=== PATIENT | female | born 1950 | race Caucasian/White ===

== ENCOUNTER 2016-05-14 09:30 | Inpatient (IN) | payer MEDICARE, OTHER ==
[2016-05-14] MEDS ORDERED: IPRATROPIUM-ALBUTEROL 3 ML NEB INHALATION STA (09:41)
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
[2016-05-14 11:12] LABS: Basophils # (A) 0.1 k/uL (0-0.2); Basophils % (A) 1 %; CH 31.6; CHCM 35.1; Eosinophils # (A) 0.5 k/uL (0-0.7); Eosinophils % (A) 5 %; HCT 44.7 % (34.0-46.0); HDW 2.69; HGB 14.9 gm/dL (11.4-16.0); Luc # (Auto) 0.17; Luc % (Auto) 2; Lymphocytes # (A) 2.1 k/uL (1.0-4.8); Lymphocytes % (A) 22 %; MCH 30.2 pg (25.0-35.0); MCHC 33.5 g/dL (31.0-37.0); MCV 90.2 fL (80.0-100.0); Mean Platelet Volume 6.6; Monocytes # (A) 0.8 k/uL (0-1.0); Monocytes % (A) 8 %; Neutrophils % (A) 62 %; RBC 4.95 m/uL (3.80-5.40); RDW 13.6 % (11.5-15.5); WBC 9.7 k/uL (3.8-10.6); WBC (Perox) 9.65
[2016-05-14 11:19] LABS: ALT 23 U/L (9-52); AST 25 U/L (14-36); Alcohol <10 mg/dL; Alkaline Phosphatase 60 U/L (38-126); Anion Gap 10 mmol/L; Blood Urea Nitrogen 19 mg/dL (7-17); Calcium 9.6 mg/dL (8.4-10.2); Carbon Dioxide 25 mmol/L (22-30); Chloride 92 mmol/L (98-107); Glucose 99 mg/dL (74-99); Magnesium 1.8 mg/dL (1.6-2.3); Non-African American GFR(MDRD) >60 (>60 ml/min/1.73 sqM); Potassium 4.2 mmol/L (3.5-5.1); Sodium 127 mmol/L (137-145); Total Bilirubin 0.5 mg/dL (0.2-1.3); Total Protein 6.3 g/dL (6.3-8.2)
--- NOTE | 2016-05-14 11:20 | XR ---
EXAMINATION TYPE: XR chest 2V DATE OF EXAM: 05/14/2016 11:15 AM COMPARISON: Prior chest x-ray April 15, 2016 and older exam November 20, 2015. HISTORY: Cough. TECHNIQUE: Frontal and lateral views of the chest are obtained. FINDINGS: There is persistent bibasilar opacity favoring atelectasis and/or scarring. Acute infiltra te is difficult to exclude though no significant change from prior studies is seen. No large pleural effusion or pneumothorax is present bilaterally. The cardiac silhouette size is within normal limits with atherosclerotic thoracic aorta. The osseous structures are are demineralized. IMPRESSION: Persistent basilar opacities favoring atelectasis and/or scarring, acute infiltrate at t his level difficult to entirely exclude in the appropriate clinical setting.
[2016-05-14] MEDS ORDERED: SODIUM CHLORIDE 0.9% 1,000 ML IV STA (11:36)
[2016-05-14] MEDS ORDERED: NON-FORMULARY DRUG (Menthol [Biofreeze] 1 APPLIC) TOPICAL PRN (12:59)
[2016-05-14] MEDS: AZITHROMYCIN 250 MG TAB PO SCH (13:18)
[2016-05-14] MEDS: SODIUM CHLORIDE 0.9% 1,000 ML IV SCH (13:19)
[2016-05-14] MEDS: IPRATROPIUM-ALBUTEROL 3 ML NEB INHALATION SCH ×3 (14:58→20:39)
[2016-05-14 15:14] LABS: Appearance,Urine Clear (Clear); Bilirubin,Urine Negative (Negative); Glucose,Urine (UA) Negative (Negative); Ketones,Urine Negative (Negative); Leukocyte Esterase,Urine Negative (Negative); Nitrite,Urine Negative (Negative); PH, Urine 6.5 (5.0-8.0); Protein,Urine Negative (Negative); Specific Gravity,Urine 1.003 (1.001-1.035); UA Billing (MACRO vs. MICRO) CHEM; Urobilinogen,Urine <2.0 mg/dL (<2.0)
[2016-05-14 17:18] LABS: Glucose,Whole Blood 92 mg/dL (75-99)
[2016-05-14] MEDS: methylPREDNISolone SOD SUCCI 125 MG/2 ML VIAL IV SCH (17:26)
[2016-05-14 17:36] LABS: Glucose,Whole Blood 92 mg/dL (75-99)
[2016-05-14] MEDS ORDERED: IPRATROPIUM-ALBUTEROL 3 ML NEB INHALATION PRN (20:40)
[2016-05-14 21:00] LABS: Glucose,Whole Blood 148 mg/dL (75-99)
[2016-05-14] MEDS ORDERED: NON-FORMULARY DRUG (Cranberry Conc/C/Bacill Coag [Cranberry Tablet] 1 TAB) PO SCH (21:00)
[2016-05-14] MEDS: cloZAPine 25 MG TAB PO SCH (22:00)
[2016-05-14] MEDS: DIVALPROEX ER 500 MG TAB.ER.24H PO SCH (22:00)
[2016-05-14] MEDS: cloZAPine 100 MG TAB PO SCH (22:00)
[2016-05-15] MEDS: SODIUM CHLORIDE 0.9% 1,000 ML IV SCH ×3 (00:16→13:57)
[2016-05-15] MEDS: methylPREDNISolone SOD SUCCI 125 MG/2 ML VIAL IV SCH ×2 (00:16→06:02)
[2016-05-15] MEDS: IPRATROPIUM-ALBUTEROL 3 ML NEB INHALATION SCH ×4 (07:14→20:55)
[2016-05-15 07:40] LABS: Glucose,Whole Blood 148 mg/dL (75-99)
[2016-05-15] MEDS: ASPIRIN 81 MG CHEW PO SCH (07:59)
[2016-05-15] MEDS: CALCIUM CARB-VIT D 500MG-200UN 1 EACH TAB PO SCH (07:59)
[2016-05-15] MEDS: POLYETHYLENE GLYCOL 3350 17 GM POWD.PACK PO SCH (08:00)
[2016-05-15] MEDS: FAMOTIDINE 20 MG TAB PO SCH (08:00)
[2016-05-15] MEDS: cloZAPine 100 MG TAB PO SCH ×2 (08:00→21:30)
[2016-05-15] MEDS ORDERED: TIOTROPIUM 18 MCG/PUFF INHALER INHALATION SCH (08:00)
[2016-05-15 10:34] LABS: Anion Gap 13 mmol/L; Blood Urea Nitrogen 25 mg/dL (7-17); Calcium 8.9 mg/dL (8.4-10.2); Carbon Dioxide 17 mmol/L (22-30); Chloride 106 mmol/L (98-107); Glucose 330 mg/dL (74-99); Non-African American GFR(MDRD) >60 (>60 ml/min/1.73 sqM); Sodium 136 mmol/L (137-145)
[2016-05-15 10:35] LABS: Potassium 5.1 mmol/L (3.5-5.1)
[2016-05-15 11:03] VITALS: BMI 22.0
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
[2016-05-15 12:19] LABS: Glucose,Whole Blood 300 mg/dL (75-99)
[2016-05-15] MEDS: ENOXAPARIN 40 MG/0.4 ML SYRINGE SQ SCH (12:33)
[2016-05-15] MEDS: DIVALPROEX ER 250 MG TAB.ER.24H PO SCH (12:34)
[2016-05-15] MEDS: INSULIN LISPRO (humaLOG) 300 UNIT/3 ML VIAL SQ SCH ×3 (12:41→21:08)
[2016-05-15 13:25] LABS: Hemoglobin A1C 4.9 % (4.2-6.1)
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
[2016-05-15] MEDS: methylPREDNISolone SOD SUCCI 40 MG/ML 1 ML VIAL IV SCH ×2 (16:03→23:29)
[2016-05-15] MEDS: traMADol 50 MG TAB PO PRN (17:22)
[2016-05-15 17:29] LABS: Glucose,Whole Blood 144 mg/dL (75-99)
[2016-05-15 20:45] LABS: Glucose,Whole Blood 142 mg/dL (75-99)
[2016-05-15] MEDS: DIVALPROEX ER 500 MG TAB.ER.24H PO SCH (21:29)
[2016-05-15] MEDS: cloZAPine 25 MG TAB PO SCH (21:30)
[2016-05-16] MEDS: SODIUM CHLORIDE 0.9% 1,000 ML IV SCH ×2 (04:39→15:08)
[2016-05-16 06:59] LABS: Norclozapine 151 ng/mL (200-700)
[2016-05-16 07:12] LABS: Glucose,Whole Blood 163 mg/dL (75-99)
[2016-05-16] MEDS: CALCIUM CARB-VIT D 500MG-200UN 1 EACH TAB PO SCH (08:05)
[2016-05-16] MEDS: POLYETHYLENE GLYCOL 3350 17 GM POWD.PACK PO SCH (08:05)
[2016-05-16] MEDS: ASPIRIN 81 MG CHEW PO SCH (08:05)
[2016-05-16] MEDS: cloZAPine 100 MG TAB PO SCH ×2 (08:05→21:05)
[2016-05-16] MEDS: methylPREDNISolone SOD SUCCI 40 MG/ML 1 ML VIAL IV SCH ×2 (08:05→15:08)
[2016-05-16] MEDS: FAMOTIDINE 20 MG TAB PO SCH (08:05)
[2016-05-16] MEDS: ENOXAPARIN 40 MG/0.4 ML SYRINGE SQ SCH (08:06)
[2016-05-16] MEDS: INSULIN LISPRO (humaLOG) 300 UNIT/3 ML VIAL SQ SCH ×4 (08:06→21:25)
[2016-05-16] MEDS: IPRATROPIUM-ALBUTEROL 3 ML NEB INHALATION SCH ×4 (09:16→19:29)
[2016-05-16] MEDS: AZITHROMYCIN 250 MG TAB PO SCH (11:16)
[2016-05-16] MEDS: DIVALPROEX ER 250 MG TAB.ER.24H PO SCH (11:16)
[2016-05-16 11:27] LABS: CH 30.9; CHCM 33.3; HDW 2.66; HGB 13.7 gm/dL (11.4-16.0); MCH 31.1 pg (25.0-35.0); MCHC 33.3 g/dL (31.0-37.0); MCV 93.3 fL (80.0-100.0); Mean Platelet Volume 7.3; RBC 4.39 m/uL (3.80-5.40); RDW 13.7 % (11.5-15.5)
[2016-05-16 11:28] LABS: Glucose,Whole Blood 123 mg/dL (75-99)
[2016-05-16 11:39] LABS: Anion Gap 8 mmol/L; Blood Urea Nitrogen 23 mg/dL (7-17); Calcium 9.1 mg/dL (8.4-10.2); Carbon Dioxide 25 mmol/L (22-30); Chloride 106 mmol/L (98-107); Glucose 122 mg/dL (74-99); Non-African American GFR(MDRD) >60 (>60 ml/min/1.73 sqM); Potassium 4.6 mmol/L (3.5-5.1); Sodium 139 mmol/L (137-145)
[2016-05-16 17:14] LABS: Glucose,Whole Blood 292 mg/dL (75-99)
[2016-05-16] MEDS: PIPERACILLIN-TAZOBACTAM 3.375 GM in DEXTROSE/WATER 1 50ML.BAG IVPB SCH (17:20)
[2016-05-16] MEDS: guaiFENesin 600 MG TABLET.ER PO SCH (17:20)
--- NOTE | 2016-05-16 18:10 | PN ---
DATE OF SERVICE: 05/16/2016 PRESENTING COMPLAINT: Chronic obstructive pulmonary disease exacerbation. INTERVAL HISTORY: This is a patient admitted to the hospital with pneumonia, COPD exacerbation and hypernatremia. Still tired. Did tolerate ( ). The patient not much hungry. Still wheezing and cough is present. Seen by psychiatry. Review of systems done for constitutional, cardiovascular, GI, pulmonary; relevant findings as well. The patient has a cough. Congested. Current medications are reviewed that include to Zithromax. On examination, temperature 97.6, pulse 101, respirations 16, blood pressure 156/74, pulse 92% on 2 liters. GENERAL APPEARANCE: Sitting up in bed, tired -appearing. EYES: Pupils equal. Conjunctivae normal. NECK: JVD not raised. Mass not palpable. RESPIRATORY: Effort increased. LUNGS: Diminished breath sounds, prolonged expiration and some crackles. CARDIOVASCULAR: First and second sounds normal. No edema. ABDOMEN: Soft, nontender. Liver and spleen not palpable. PSYCHIATRY: Awake, answering questions, more awake today. INVESTIGATIONS: White count 23, hemoglobin 14.6. Accu-Cheks are noted. ASSESSMENT: 1. Possible basal pneumonia, suspect gram-negative organism in a smoker present on admission, slow to respond. 2. Acute chronic obstructive pulmonary disease exacerbation in a smoker, slow to respond. 3. Hyponatremia suspect hypoosmolar from decreased oral intake. 4. Acute metabolic encephalopathy probably drug-induced present at admission, improving. 5. Gastroesophageal reflux disease. 6. Essential hypertension. 7. Primary osteoarthritis in multiple joints bilateral, chronic. 8. Chronic nicotine dependence. Patient is cigar smoker. 9. Schizoaffective disorder, bipolar type. 10. Anxiety disorder. 11. Hyponatremia, improved. Additionally the patient's Clozaril level is 718. PLAN: Continue current medication and treatment plan. We will change the patient's antibiotic to Zosyn, ( ) the Zithromax and add some Mucinex and continue nebulized bronchodilators.
[2016-05-16] MEDS: cloZAPine 25 MG TAB PO SCH (21:05)
[2016-05-16] MEDS: DIVALPROEX ER 500 MG TAB.ER.24H PO SCH (21:05)
[2016-05-16 21:14] LABS: Glucose,Whole Blood 307 mg/dL (75-99)
[2016-05-16] MEDS ORDERED: INSULIN LISPRO (humaLOG) 300 UNIT/3 ML VIAL SQ ONE (21:22)
[2016-05-17] MEDS: PIPERACILLIN-TAZOBACTAM 3.375 GM in DEXTROSE/WATER 1 50ML.BAG IVPB SCH ×4 (00:05→22:59)
[2016-05-17] MEDS: methylPREDNISolone SOD SUCCI 40 MG/ML 1 ML VIAL IV SCH ×4 (00:06→22:59)
[2016-05-17] MEDS: SODIUM CHLORIDE 0.9% 1,000 ML IV SCH ×3 (03:33→20:02)
[2016-05-17 06:50] LABS: Glucose,Whole Blood 135 mg/dL (75-99)
[2016-05-17] MEDS: cloZAPine 100 MG TAB PO SCH ×2 (07:25→20:01)
[2016-05-17] MEDS: guaiFENesin 600 MG TABLET.ER PO SCH ×2 (07:25→20:01)
[2016-05-17] MEDS: CALCIUM CARB-VIT D 500MG-200UN 1 EACH TAB PO SCH (07:25)
[2016-05-17] MEDS: ASPIRIN 81 MG CHEW PO SCH (07:25)
[2016-05-17] MEDS: FAMOTIDINE 20 MG TAB PO SCH (07:25)
[2016-05-17] MEDS: POLYETHYLENE GLYCOL 3350 17 GM POWD.PACK PO SCH (07:25)
[2016-05-17] MEDS: INSULIN LISPRO (humaLOG) 300 UNIT/3 ML VIAL SQ SCH ×4 (07:25→20:35)
[2016-05-17] MEDS: ENOXAPARIN 40 MG/0.4 ML SYRINGE SQ SCH (07:26)
[2016-05-17] MEDS: IPRATROPIUM-ALBUTEROL 3 ML NEB INHALATION SCH ×4 (08:53→19:49)
[2016-05-17] MEDS: DIVALPROEX ER 250 MG TAB.ER.24H PO SCH (11:11)
[2016-05-17 12:13] LABS: Glucose,Whole Blood 285 mg/dL (75-99)
[2016-05-17 16:58] LABS: Glucose,Whole Blood 302 mg/dL (75-99)
--- NOTE | 2016-05-17 18:44 | PN ---
DATE OF SERVICE: 05/17/2016 PRESENTING COMPLAINT: Short of breath. INTERVAL HISTORY: This lady was admitted to the hospital with pneumonia and COPD exacerbation, hyponatremia, patient a bit more awake, coughing, oral intake is still low, some wheezing is present. Review of systems done for constitutional, cardiovascular, GI, pulmonary; relevant findings as above. Current medications are reviewed that include IV Zosyn, IV Solu-Medrol, nebulized bronchodilators, Mucinex. On examination, temperature 96.2, pulse 101, respirations 20, blood pressure 187/84, pulse ox 94% on 2 liters. GENERAL APPEARANCE: Sitting up, tired -appearing. EYES: Pupils equal. Conjunctivae normal. NECK: JVD not raised. Mass not palpable. Respiratory effort increased. Lungs diminished breath sounds. Prolonged expiration. Right-sided bronchial breathing, some basal crackles. CARDIOVASCULAR: First and second sounds normal. No edema. ABDOMEN: Soft, nontender. Liver and spleen not palpable. PSYCHIATRY: Awake, answering questions, but tired appearing. INVESTIGATIONS: Accu-Cheks are noted. ASSESSMENT: 1. Basal pneumonia, suspect gram-negative organism in a smoker. Patient is slow to respond. 2. Acute chronic obstructive pulmonary disease exacerbation in a smoker, slow to respond. 3. Hyponatremia suspect hypoosmolar from decreased oral intake. 4. Acute metabolic encephalopathy, probably drug-induced present at admission, improving. 5. Gastroesophageal reflux disease. 6. Essential hypertension. 7. Primary osteoarthritis in multiple joints, bilateral, chronic. 8. Chronic nicotine dependence. Patient is cigarette smoker. 9. Schizoaffective disorder, bipolar type with exacerbation, anxiety disorder. PLAN: At this point, continue current medication and treatment plan. Antibiotics. Care was discussed with the patient. We will repeat a chest x-ray in the morning. ( ) repeat labs. Prognosis is guarded,
[2016-05-17] MEDS: DIVALPROEX ER 500 MG TAB.ER.24H PO SCH (20:01)
[2016-05-17] MEDS: cloZAPine 25 MG TAB PO SCH (20:01)
[2016-05-17 20:28] LABS: Glucose,Whole Blood 205 mg/dL (75-99)
[2016-05-18 06:56] LABS: Glucose,Whole Blood 130 mg/dL (75-99)
[2016-05-18] MEDS: IPRATROPIUM-ALBUTEROL 3 ML NEB INHALATION SCH ×4 (07:26→19:48)
[2016-05-18] MEDS: INSULIN LISPRO (humaLOG) 300 UNIT/3 ML VIAL SQ SCH ×4 (07:31→20:52)
[2016-05-18] MEDS: cloZAPine 100 MG TAB PO SCH ×2 (07:32→20:25)
[2016-05-18] MEDS: SODIUM CHLORIDE 0.9% 1,000 ML IV SCH ×2 (07:32→15:09)
[2016-05-18] MEDS: ASPIRIN 81 MG CHEW PO SCH (07:32)
[2016-05-18] MEDS: PIPERACILLIN-TAZOBACTAM 3.375 GM in DEXTROSE/WATER 1 50ML.BAG IVPB SCH ×2 (07:32→15:08)
[2016-05-18] MEDS: FAMOTIDINE 20 MG TAB PO SCH (07:32)
[2016-05-18] MEDS: CALCIUM CARB-VIT D 500MG-200UN 1 EACH TAB PO SCH (07:32)
[2016-05-18] MEDS: guaiFENesin 600 MG TABLET.ER PO SCH ×2 (07:32→20:25)
[2016-05-18] MEDS: methylPREDNISolone SOD SUCCI 40 MG/ML 1 ML VIAL IV SCH ×2 (07:32→15:08)
[2016-05-18] MEDS: ENOXAPARIN 40 MG/0.4 ML SYRINGE SQ SCH (07:32)
[2016-05-18] MEDS: POLYETHYLENE GLYCOL 3350 17 GM POWD.PACK PO SCH (07:33)
--- NOTE | 2016-05-18 08:13 | XR ---
EXAMINATION TYPE: XR chest 2V DATE OF EXAM: 05/18/2016 7:21 AM COMPARISON: 05/14/2016 HISTORY: 66-year-old female pneumonia TECHNIQUE: Frontal and lateral views FINDINGS: Low lung volumes with chronic interstitial prominence.. Continued focal left basilar infiltrate, incr eased in the retrocardiac and posterior left basilar region especially when correlated with the later al view. IMPRESSION: Increasing posterior left basilar infiltrate as compared to 05/14/2016. Hypoventilatory changes.
[2016-05-18 08:30] LABS: Basophils % (A) 0 %; CH 31.2; CHCM 33.4; Eosinophils % (A) 0 %; HCT 46.6 % (34.0-46.0); HDW 2.59; HGB 15.2 gm/dL (11.4-16.0); Luc # (Auto) 0.08; Luc % (Auto) 1; Lymphocytes # (A) 0.8 k/uL (1.0-4.8); Lymphocytes % (A) 6 %; MCH 30.5 pg (25.0-35.0); MCHC 32.6 g/dL (31.0-37.0); MCV 93.7 fL (80.0-100.0); Mean Platelet Volume 6.7; Monocytes # (A) 0.5 k/uL (0-1.0); Monocytes % (A) 3 %; Neutrophils # (A) 12.8 k/uL (1.3-7.7); Neutrophils % (A) 90 %; RBC 4.97 m/uL (3.80-5.40); RDW 13.5 % (11.5-15.5); WBC 14.2 k/uL (3.8-10.6); WBC (Perox) 14.74
[2016-05-18 08:42] LABS: Anion Gap 11 mmol/L; Blood Urea Nitrogen 30 mg/dL (7-17); Calcium 9.4 mg/dL (8.4-10.2); Carbon Dioxide 31 mmol/L (22-30); Chloride 99 mmol/L (98-107); Glucose 134 mg/dL (74-99); Non-African American GFR(MDRD) >60 (>60 ml/min/1.73 sqM); Potassium 4.2 mmol/L (3.5-5.1); Sodium 141 mmol/L (137-145)
--- NOTE | 2016-05-18 11:21 | P.PN ---
Progress Note - Text PATIENT WAS SEEN FOR PSYCHIATRIC FOLLOW_UP SUBJECTIVE: I reviewed the medical record. and discussed her treatment and her progress with her RN. According to staff patient has been pleasant ,no aggressive behavior ,underlying fixed delusion but has been compliant with treatment , VITALS:Resp:20,Pulse :108,Blood pressure :191/84 ,oxygen 93 on nasal cannula CHEST X RAY THIS MORNING :Increasing infiltrate WBC:14.2 ASSESSMENT: Pneumonia ,low oxygen saturation will affect her cognitive function and thought process PLAN: Continue treatment for underlying pneumonia ,patient might improve mentally and most likely will not need inpatient psych. hospitalization ,will follow
[2016-05-18 11:42] LABS: Glucose,Whole Blood 307 mg/dL (75-99)
[2016-05-18] MEDS: DIVALPROEX ER 250 MG TAB.ER.24H PO SCH (11:46)
[2016-05-18 17:11] LABS: Glucose,Whole Blood 110 mg/dL (75-99)
[2016-05-18] MEDS: AMOXIC-POT CLAV 875-125MG 1 EACH TAB PO SCH (20:25)
[2016-05-18] MEDS: predniSONE 20 MG TAB PO SCH (20:25)
[2016-05-18] MEDS: cloZAPine 25 MG TAB PO SCH (20:26)
[2016-05-18] MEDS: DIVALPROEX ER 500 MG TAB.ER.24H PO SCH (20:26)
[2016-05-18 20:45] LABS: Glucose,Whole Blood 340 mg/dL (75-99)
[2016-05-18] MEDS ORDERED: INSULIN NPH 300 UNIT/3 ML VIAL SQ ONE (21:15)
[2016-05-19 01:54] LABS: Glucose,Whole Blood 154 mg/dL (75-99)
[2016-05-19] MEDS: SODIUM CHLORIDE 0.9% 1,000 ML IV SCH ×2 (02:59→12:30)
[2016-05-19 07:07] LABS: Glucose,Whole Blood 113 mg/dL (75-99)
[2016-05-19] MEDS: INSULIN LISPRO (humaLOG) 300 UNIT/3 ML VIAL SQ SCH ×4 (07:25→21:23)
[2016-05-19] MEDS: IPRATROPIUM-ALBUTEROL 3 ML NEB INHALATION SCH ×4 (08:11→18:31)
[2016-05-19] MEDS: ASPIRIN 81 MG CHEW PO SCH (08:39)
[2016-05-19] MEDS: cloZAPine 100 MG TAB PO SCH ×2 (08:39→20:02)
[2016-05-19] MEDS: AMOXIC-POT CLAV 875-125MG 1 EACH TAB PO SCH ×2 (08:39→20:02)
[2016-05-19] MEDS: CALCIUM CARB-VIT D 500MG-200UN 1 EACH TAB PO SCH (08:39)
[2016-05-19] MEDS: FAMOTIDINE 20 MG TAB PO SCH (08:40)
[2016-05-19] MEDS: ENOXAPARIN 40 MG/0.4 ML SYRINGE SQ SCH (08:40)
[2016-05-19] MEDS: predniSONE 20 MG TAB PO SCH (08:40)
[2016-05-19] MEDS: POLYETHYLENE GLYCOL 3350 17 GM POWD.PACK PO SCH (08:40)
[2016-05-19] MEDS: guaiFENesin 600 MG TABLET.ER PO SCH ×2 (08:40→20:02)
[2016-05-19 09:02] LABS: Basophils # (A) 0.2 k/uL (0-0.2); Basophils % (A) 2 %; CH 31.2; CHCM 33.2; Eosinophils % (A) 0 %; HDW 2.55; HGB 15.5 gm/dL (11.4-16.0); Luc # (Auto) 0.09; Luc % (Auto) 1; Lymphocytes # (A) 0.6 k/uL (1.0-4.8); Lymphocytes % (A) 5 %; MCH 31.3 pg (25.0-35.0); MCHC 33.1 g/dL (31.0-37.0); MCV 94.6 fL (80.0-100.0); Mean Platelet Volume 7.5; Monocytes # (A) 0.5 k/uL (0-1.0); Monocytes % (A) 4 %; Neutrophils # (A) 10.5 k/uL (1.3-7.7); Neutrophils % (A) 88 %; RBC 4.97 m/uL (3.80-5.40); RDW 13.3 % (11.5-15.5); WBC 11.9 k/uL (3.8-10.6); WBC (Perox) 12.57
--- NOTE | 2016-05-19 09:23 | PN ---
DATE OF SERVICE: 05/18/2016 PRESENTING COMPLAINT: Short of breath. INTERVAL HISTORY: Admitted with COPD, pneumonia and hyponatremia. The patient did eat much better. A little bit tired. Cough is improving. Less wheezing. Review of systems done for constitutional, cardiovascular, GI, pulmonary; relevant findings as above. Current medications are reviewed that include IV Zosyn and IV Solu-Medrol. On examination, temperature 97, pulse 89, respirations 20, blood pressure 190/84, pulse ox 93% on 2 liters. Repeat blood pressure is 140/67. GENERAL APPEARANCE: Lying back, tired -appearing. EYES: Pupils equal. Conjunctivae normal. NECK: JVD not raised. Mass not palpable. RESPIRATORY: Effort normal. LUNGS: Decreased breath sounds. CARDIOVASCULAR: First and second sounds normal. No edema. ABDOMEN: Soft, nontender. Liver and spleen not palpable. PSYCHIATRY: Tired but answers questions appropriately. INVESTIGATIONS: White count 14.2. Potassium 4.2. ASSESSMENT: 1. Basilar pneumonia, suspect gram-negative orgasm in a smoker, improving. 2. Acute chronic obstructive pulmonary disease exacerbation in a smoker. 3. Hypernatremia suspect hypoosmolar from decreased oral intake improved. 4. Acute metabolic encephalopathy probably drug-induced present at admission, improving. 5. Gastroesophageal reflux disease. 6. Essential hypertension. 7. Primary osteoarthritis multiple joints, bilateral, chronic. 8. Chronic nicotine dependence. Patient is cigarette smoker. 9. Schizoaffective disorder, bipolar type with exacerbation. PLAN: Get the patient out of bed. Check labs in the morning. Switch to oral steroids in the morning. We will switch to oral antibiotics.
[2016-05-19 09:24] LABS: Anion Gap 13 mmol/L; Blood Urea Nitrogen 42 mg/dL (7-17); Calcium 8.9 mg/dL (8.4-10.2); Carbon Dioxide 27 mmol/L (22-30); Chloride 99 mmol/L (98-107); Glucose 150 mg/dL (74-99); Non-African American GFR(MDRD) >60 (>60 ml/min/1.73 sqM); Sodium 139 mmol/L (137-145)
[2016-05-19 09:28] LABS: Potassium 4.4 mmol/L (3.5-5.1)
[2016-05-19 11:50] LABS: Glucose,Whole Blood 110 mg/dL (75-99)
[2016-05-19] MEDS: DIVALPROEX ER 250 MG TAB.ER.24H PO SCH (12:29)
[2016-05-19] MEDS: traMADol 50 MG TAB PO PRN (12:31)
[2016-05-19 16:42] LABS: Glucose,Whole Blood 192 mg/dL (75-99)
[2016-05-19] MEDS: cloZAPine 25 MG TAB PO SCH (20:02)
[2016-05-19] MEDS: DIVALPROEX ER 500 MG TAB.ER.24H PO SCH (20:02)
[2016-05-19 21:08] LABS: Glucose,Whole Blood 276 mg/dL (75-99)
[2016-05-19] MEDS: FUROSEMIDE 10 MG/ML 2 ML VIAL IV SCH (22:24)
--- NOTE | 2016-05-20 07:07 | PN ---
DATE OF SERVICE: 05/19/2016 PRESENTING COMPLAINT: Cough. INTERVAL HISTORY: This is a patient with COPD exacerbation, pneumonia, hyponatremia. Continued to do better, eating better. Has been out of bed. Review of systems done for constitutional, cardiovascular, GI, pulmonary; relevant findings as above. Current medications are reviewed that include Augmentin, oral prednisone. On examination, temperature 96.8, pulse 88, respiration 20, blood pressure 173/83, pulse ox 91% on 2 L. GENERAL APPEARANCE: Sitting up, comfortable. EYES: Pupils equal. Conjunctivae normal. NECK: JVD not raised. Mass not palpable. RESPIRATORY: Effort normal. LUNGS: Decreased breath sounds. CARDIOVASCULAR: First and second sounds normal. No edema. ABDOMEN: Soft, nontender. Liver and spleen not palpable. PSYCHIATRY: Awake, answering questions. INVESTIGATIONS: White count 11.9. Potassium 4.4. ASSESSMENT: 1. Bibasilar pneumonia, suspect gram-negative organism in a smoker clinically much improved. 2. Acute chronic obstructive pulmonary disease exacerbation in a smoker. 3. Hyponatremia, suspect hypoosmolar from decreased oral intake on presentation, improved. 4. Acute metabolic encephalopathy, probably drug-induced, present on admission, improved. 5. Gastroesophageal reflux disease. 6. Essential hypertension. 7. Primary osteoarthritis in multiple joints bilateral, chronic. 8. Chronic nicotine dependence. Patient is a cigarette smoker. 9. Schizoaffective disorder, bipolar type ( ). PLAN: Overall doing much better. Continue current medication and treatment plan. Await further input from Psychiatry.
[2016-05-20] MEDS: INSULIN LISPRO (humaLOG) 300 UNIT/3 ML VIAL SQ SCH ×4 (07:35→21:02)
[2016-05-20 07:57] LABS: Glucose,Whole Blood 76 mg/dL (75-99)
[2016-05-20 07:57] LABS: Glucose,Whole Blood 66 mg/dL (75-99)
[2016-05-20] MEDS: IPRATROPIUM-ALBUTEROL 3 ML NEB INHALATION SCH ×4 (08:23→19:27)
[2016-05-20] MEDS: cloZAPine 100 MG TAB PO SCH ×2 (09:06→20:30)
[2016-05-20] MEDS: FUROSEMIDE 10 MG/ML 2 ML VIAL IV SCH (09:06)
[2016-05-20] MEDS: ASPIRIN 81 MG CHEW PO SCH (09:07)
[2016-05-20] MEDS: POLYETHYLENE GLYCOL 3350 17 GM POWD.PACK PO SCH (09:07)
[2016-05-20] MEDS: FAMOTIDINE 20 MG TAB PO SCH (09:07)
[2016-05-20] MEDS: predniSONE 20 MG TAB PO SCH (09:07)
[2016-05-20] MEDS: ENOXAPARIN 40 MG/0.4 ML SYRINGE SQ SCH (09:07)
[2016-05-20] MEDS: CALCIUM CARB-VIT D 500MG-200UN 1 EACH TAB PO SCH (09:07)
[2016-05-20] MEDS: guaiFENesin 600 MG TABLET.ER PO SCH ×2 (09:07→20:31)
[2016-05-20] MEDS: AMOXIC-POT CLAV 875-125MG 1 EACH TAB PO SCH ×2 (09:07→20:31)
[2016-05-20 12:14] LABS: Glucose,Whole Blood 280 mg/dL (75-99)
[2016-05-20] MEDS: DIVALPROEX ER 250 MG TAB.ER.24H PO SCH (12:16)
--- NOTE | 2016-05-20 15:22 | XR ---
EXAMINATION TYPE: XR chest 2V DATE OF EXAM: 05/20/2016 2:10 PM COMPARISON: Prior chest x-ray 18 May 2016 HISTORY: Abnormal chest x-ray TECHNIQUE: Frontal and lateral views of the chest are obtained. FINDINGS: Bandlike areas of increased attenuation are again noted at the lung bases, lung volumes ar e low and the patient is rotated. No evident pneumothorax. Difficult to exclude small effusion. Cardi omediastinal silhouette, pulmonary vascularity and mellissa felt to be stable. IMPRESSION: Findings may represent basilar atelectasis and effusion rather than pneumonia, correlate . Follow-up is recommended. Low lung volumes.
[2016-05-20] MEDS: FUROSEMIDE 10 MG/ML 4 ML VIAL IV SCH ×2 (16:25→21:03)
[2016-05-20 16:37] LABS: Glucose,Whole Blood 124 mg/dL (75-99)
--- NOTE | 2016-05-20 20:22 | PN ---
DATE OF SERVICE: 05/20/2016 PRESENTING COMPLAINT: Cough. INTERVAL HISTORY: This patient presented with COPD exacerbation, pneumonia, hyponatremia. Breathing is better. Did tolerate some diet. Review of systems done for constitutional, cardiovascular, GI, pulmonary; relevant findings as above. Current medications are reviewed and include DuoNeb and Augmentin. On examination, temperature 98, pulse 78, respiration 16, blood pressure 160/80, pulse ox 95% on 3 L. GENERAL APPEARANCE: Sitting up, comfortable. EYES: Pupils equal. Conjunctivae normal. NECK: JVD not raised. Mass not palpable. RESPIRATORY: Effort normal. LUNGS: Basal crackles. CARDIOVASCULAR: First and second sounds normal. No edema. ABDOMEN: Soft, nontender. Liver and spleen not palpable. PSYCHIATRY: Awake, answering questions. INVESTIGATIONS: Chest x-ray shows some pulmonary edema. Accu-Cheks 66, 76, 280, 124. ASSESSMENT: 1. Bibasilar pneumonia, suspect gram-negative organism clinically better. 2. Acute fluid overload, from getting IV fluids. 3. Chronic obstructive pulmonary disease exacerbation in a smoker. 4. Hyponatremia suspect hypoosmolar from decreased oral intake on presentation. 5. Acute metabolic encephalopathy probably drug-induced present at admission, improved. 6. Gastroesophageal reflux disease. 7. Essential hypertension. 8. Primary osteoarthrosis of multiple joints, bilateral, chronic. 9. Chronic nicotine dependence. Patient is a cigarette smoker. 10. Schizoaffective disorder bipolar type. PLAN: Will give the patient 2 doses of IV Lasix, cut back on steroids further. Repeat lytes in the morning.
[2016-05-20] MEDS: cloZAPine 25 MG TAB PO SCH (20:31)
[2016-05-20] MEDS: DIVALPROEX ER 500 MG TAB.ER.24H PO SCH (20:31)
[2016-05-20 21:23] LABS: Glucose,Whole Blood 364 mg/dL (75-99)
[2016-05-21 02:20] LABS: Glucose,Whole Blood 149 mg/dL (75-99)
[2016-05-21 07:27] LABS: Glucose,Whole Blood 94 mg/dL (75-99)
[2016-05-21] MEDS: AMOXIC-POT CLAV 875-125MG 1 EACH TAB PO SCH ×2 (07:29→21:29)
[2016-05-21] MEDS: guaiFENesin 600 MG TABLET.ER PO SCH ×2 (07:29→21:27)
[2016-05-21] MEDS: cloZAPine 100 MG TAB PO SCH ×2 (07:29→21:28)
[2016-05-21] MEDS: FAMOTIDINE 20 MG TAB PO SCH (07:30)
[2016-05-21] MEDS: CALCIUM CARB-VIT D 500MG-200UN 1 EACH TAB PO SCH (07:30)
[2016-05-21] MEDS: predniSONE 20 MG TAB PO SCH (07:31)
[2016-05-21] MEDS: POLYETHYLENE GLYCOL 3350 17 GM POWD.PACK PO SCH (07:31)
[2016-05-21] MEDS: ENOXAPARIN 40 MG/0.4 ML SYRINGE SQ SCH (07:31)
[2016-05-21] MEDS: ASPIRIN 81 MG CHEW PO SCH (07:31)
[2016-05-21] MEDS: INSULIN LISPRO (humaLOG) 300 UNIT/3 ML VIAL SQ SCH ×4 (07:31→21:29)
[2016-05-21 08:39] LABS: Anion Gap 11 mmol/L; Blood Urea Nitrogen 54 mg/dL (7-17); Calcium 8.6 mg/dL (8.4-10.2); Carbon Dioxide 34 mmol/L (22-30); Chloride 92 mmol/L (98-107); Glucose 106 mg/dL (74-99); Non-African American GFR(MDRD) 56 (>60 ml/min/1.73 sqM); Potassium 4.1 mmol/L (3.5-5.1); Sodium 137 mmol/L (137-145)
[2016-05-21] MEDS: IPRATROPIUM-ALBUTEROL 3 ML NEB INHALATION SCH ×4 (08:45→19:42)
[2016-05-21] MEDS: DIVALPROEX ER 250 MG TAB.ER.24H PO SCH (11:12)
[2016-05-21 11:26] LABS: Glucose,Whole Blood 195 mg/dL (75-99)
--- NOTE | 2016-05-21 13:28 | P.PN ---
Subjective PATIENT WAS SEEN FOR PSYCHIATRIC FOLLOW_UP SUBJECTIVE: Patient is alert ,able to participate in session ,she endorses persecutory ,somatic and grandiose delusion ,she stated that she does not want to go back to skilled nursing despite she had been there for 5 years because "I can not trust them ,I am very rich and I am buying my own place to raise my twins", patient does believe that she is 4 months with twins ,I tried to offer reality testing but she got angry and irritable, ,denies any suicidal or homicidal ideation ,her insight and judgment impaired LABS:BUN :54 ,Carbon dioxide:34 ,Chloride:92 Chest X ray on 05/20 :basilar atectasis ,Effusion CLOZAPINE LEVEL:718 ,H however Norclozapine is 151 ( For resistant schizophrenia has to be between 200-700 ) PLAN: patient is not competent to sign voluntary admission ,r transfer to Mental unit on involuntary basis if medically cleared Objective - Vital Signs Vital signs: Vital Signs Temp 97.2 F L 05/21/16 07:00 Pulse 96 05/21/16 09:00 Resp 16 05/21/16 07:00 BP 127/75 05/21/16 07:00 Pulse Ox 99 05/21/16 08:46 Intake & Output 05/20/16 05/21/16 05/21/16 18:59 06:59 18:59 Intake Total 720 480 Balance 720 480 Weight 51.256 kg Intake: Oral 720 480 Other: Voiding Method Toilet Toilet # Voids 3 5 # Bowel Movements 0 - Labs CBC & Chem 7: 05/19/16 07:47 05/21/16 08:04 Labs: Abnormal Lab Results - Last 24 Hours (Table) 05/20/16 05/20/16 05/21/16 Range/Units 16:27 20:41 02:09 Chloride (98-107) mmol/L Carbon Dioxide (22-30) mmol/L BUN (7-17) mg/dL Glucose (74-99) mg/dL POC Glucose (mg/dL) 124 H 364 H 149 H (75-99) mg/dL 05/21/16 05/21/16 Range/Units 08:04 11:19 Chloride 92 L (98-107) mmol/L Carbon Dioxide 34 H (22-30) mmol/L BUN 54 H (7-17) mg/dL Glucose 106 H (74-99) mg/dL POC Glucose (mg/dL) 195 H (75-99) mg/dL
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
[2016-05-21 15:25] VITALS: BP 121/72; RESP 18; TEMP 98.1
[2016-05-21] MEDS: traMADol 50 MG TAB PO PRN (16:15)
[2016-05-21 17:22] LABS: Glucose,Whole Blood 157 mg/dL (75-99)
[2016-05-21 19:54] VITALS: PULSE 108
[2016-05-21 20:54] LABS: Glucose,Whole Blood 192 mg/dL (75-99)
[2016-05-21] MEDS: cloZAPine 25 MG TAB PO SCH (21:28)
[2016-05-21] MEDS: DIVALPROEX ER 500 MG TAB.ER.24H PO SCH (21:28)
--- NOTE | 2016-05-21 22:07 | DS ---
DATE OF ADMISSION: 05/14/2016 DATE OF DISCHARGE: 05/21/2016 FINAL DIAGNOSES: 1. Bilateral pneumonia, suspect gram- negative organism, clinically much improved. 2. Acute fluid overload from getting IV fluids, resolved. 3. Acute chronic obstructive pulmonary disease exacerbation in a smoker. 4. Hyponatremia, suspect hypoosmolar from decreased oral intake, on presentation. 5. Acute metabolic encephalopathy, probably drug-induced, present on admission, improved. 6. Gastroesophageal reflux disease. 7. Essential hypertension. 8. Primary osteoarthritis in multiple joints, bilateral, chronic. 9. Delusional disorder. 10. Chronic nicotine dependence, smoker. 11. Schizoaffective disorder, bipolar type. CONSULTATION: Dr. Carias from psychiatry. HOSPITAL COURSE: This patient is a smoker, presented with COPD exacerbation, pneumonia and that really resolved. Patient was found to have a flare-up of her schizoaffective disorder, delusional. Seen by psychiatry, Dr. Carias. Patient accepted down there. On examination, lungs are clear. CARDIOVASCULAR: First and second sounds normal. Patient today was again delusional, thinking if she goes back, she will be hurt and having some grandiose ideations; hence, she is going to go to the psychiatry unit. DISCHARGE MEDICATIONS: 1. Cranberry tablet, 1 tablet p.o. b.i.d. 2. Ultram 50 mg p.o. b.i.d. p.r.n. 3. Ventolin inhaler 2 puffs t.i.d. p.r.n. 4. Aspirin 81 mg a day. 5. Symbicort 160/4.5, 2 puffs b.i.d. 6. Calcium with vitamin D3, 1 tablet p.o. daily. 7. Depakote ER 250 mg daily at noon and 5 mg p.o. q.h.s. 8. Pepcid 20 mg p.o. daily. 9. Biofreeze topical b.i.d. p.r.n. 10. MiraLax 17 g p.o. daily. 11. Spiriva 1 capsule p.o. daily. 12. Clozaril 25 mg at night, 200 mg in morning, 300 mg at night. 13. Prednisone taper. Follow up with [facility] after discharge from the psych unit and follow up with Dr. Carias from psychiatry.
== END 2016-05-21 23:22 | DRG 190 ==
LOC: EC 09:30 → 4MS4W 12:56
PROVIDERS: ADMIT Hospitalist; ATTEND Hospitalist
DX: J44.0 Chronic obstructive pulmonary disease with (acute) lower respiratory infection (principal); J15.6 Pneumonia due to other Gram-negative bacteria; G92 Toxic encephalopathy; E87.1 Hypo-osmolality and hyponatremia; E11.22 Type 2 diabetes mellitus with diabetic chronic kidney disease; E11.40 Type 2 diabetes mellitus with diabetic neuropathy, unspecified; E86.0 Dehydration; J44.1 Chronic obstructive pulmonary disease with (acute) exacerbation; E78.5 Hyperlipidemia, unspecified; E87.70 Fluid overload, unspecified; F17.210 Nicotine dependence, cigarettes, uncomplicated; F17.290 Nicotine dependence, other tobacco product, uncomplicated; F25.0 Schizoaffective disorder, bipolar type; F41.0 Panic disorder [episodic paroxysmal anxiety]; F43.10 Post-traumatic stress disorder, unspecified; I12.9 Hypertensive chronic kidney disease with stage 1 through stage 4 chronic kidney disease, or unspecified chronic kidney disease; J45.909 Unspecified asthma, uncomplicated; K21.9 Gastro-esophageal reflux disease without esophagitis; M15.9 Polyosteoarthritis, unspecified; N18.9 Chronic kidney disease, unspecified; D64.9 Anemia, unspecified; F32.9 Major depressive disorder, single episode, unspecified; R26.81 Unsteadiness on feet; F41.9 Anxiety disorder, unspecified; F22 Delusional disorders; T50.905A Adverse effect of unspecified drugs, medicaments and biological substances, initial encounter; Z79.899 Other long term (current) drug therapy; Z86.14 Personal history of Methicillin resistant Staphylococcus aureus infection; Z88.1 Allergy status to other antibiotic agents; Z88.5 Allergy status to narcotic agent; Z88.8 Allergy status to other drugs, medicaments and biological substances; Z79.82 Long term (current) use of aspirin; Z91.5 Personal history of self-harm; Y92.009 Unspecified place in unspecified non-institutional (private) residence as the place of occurrence of the external cause
CPT/HCPCS: 36415; 71020; 80048; 80053; 80159; 80306; 80320; 81003; 83036; 83735; 83930; 85025; 85027; 93005; 94640; 94760; 96360; 99285

== ENCOUNTER 2016-05-16 17:03 | Inpatient (IN) | payer MEDICARE, MEDICAID ==
[2016-05-21] MEDS ORDERED: MAG HYDROX/AL HYDROX/SIMETH 30 ML CUP PO PRN (23:49)
[2016-05-21] MEDS ORDERED: ACETAMINOPHEN TAB 325 MG TAB PO PRN (23:49)
[2016-05-21] MEDS ORDERED: MAGNESIUM HYDROXIDE 2,400 MG/10 ML CUP PO PRN (23:49)
[2016-05-21] MEDS ORDERED: NON-FORMULARY DRUG (Menthol [Biofreeze] 1 APPLIC) TOPICAL PRN (23:51)
[2016-05-21] MEDS ORDERED: traMADol 50 MG TAB PO PRN (23:51)
[2016-05-21] MEDS ORDERED: ALBUTEROL INHALER 60 PUFF/8 GM INHALER INHALATION PRN (23:51)
[2016-05-22 04:09] VITALS: BMI 24.8
[2016-05-22 07:14] LABS: Glucose,Whole Blood 82 mg/dL (75-99)
[2016-05-22] MEDS ORDERED: INSULIN LISPRO (humaLOG) 300 UNIT/3 ML VIAL SQ SCH (07:30)
[2016-05-22] MEDS: INSULIN LISPRO (humaLOG) 300 UNIT/3 ML VIAL SQ SCH ×4 (07:58→20:31)
[2016-05-22] MEDS ORDERED: TIOTROPIUM 18 MCG/PUFF INHALER INHALATION SCH (08:00)
[2016-05-22] MEDS ORDERED: NON-FORMULARY DRUG (Cranberry Conc/C/Bacill Coag [Cranberry Tablet] 1 TAB) PO SCH (09:00)
[2016-05-22] MEDS ORDERED: cloZAPine 100 MG TAB PO SCH ×2 (09:00→21:00)
[2016-05-22] MEDS: FAMOTIDINE 20 MG TAB PO SCH (10:00)
[2016-05-22] MEDS: POLYETHYLENE GLYCOL 3350 17 GM POWD.PACK PO SCH (10:00)
[2016-05-22] MEDS: CALCIUM CARB-VIT D 500MG-200UN 1 EACH TAB PO SCH (10:00)
[2016-05-22] MEDS: ASPIRIN 81 MG CHEW PO SCH (10:00)
[2016-05-22] MEDS: predniSONE 10 MG TAB PO SCH (10:00)
[2016-05-22 10:09] LABS: Basophils # (A) 0.1 k/uL (0-0.2); Basophils % (A) 1 %; CH 30.7; CHCM 33.3; Eosinophils # (A) 0.3 k/uL (0-0.7); Eosinophils % (A) 2 %; HCT 44.8 % (34.0-46.0); HDW 2.41; HGB 14.8 gm/dL (11.4-16.0); Luc # (Auto) 0.25; Luc % (Auto) 2; Lymphocytes # (A) 3.9 k/uL (1.0-4.8); Lymphocytes % (A) 24 %; MCH 30.6 pg (25.0-35.0); MCV 92.6 fL (80.0-100.0); Mean Platelet Volume 7.2; Monocytes # (A) 0.9 k/uL (0-1.0); Monocytes % (A) 5 %; Neutrophils # (A) 10.9 k/uL (1.3-7.7); Neutrophils % (A) 67 %; RBC 4.84 m/uL (3.80-5.40); RDW 13.6 % (11.5-15.5); WBC 16.3 k/uL (3.8-10.6); WBC (Perox) 17.21
[2016-05-22 11:44] LABS: Hemoglobin A1C 5.2 % (4.2-6.1)
[2016-05-22] MEDS ORDERED: DIVALPROEX ER 250 MG TAB.ER.24H PO SCH ×2 (12:00→21:00)
[2016-05-22] MEDS: SYMBICORT 160-4.5 MCG INHALER INHALATION SCH ×2 (12:23→22:25)
[2016-05-22 12:50] LABS: Glucose,Whole Blood 97 mg/dL (75-99)
[2016-05-22 16:52] LABS: Glucose,Whole Blood 183 mg/dL (75-99)
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
--- NOTE | 2016-05-22 19:04 | XR ---
EXAMINATION TYPE: XR chest 2V DATE OF EXAM: 05/22/2016 7:00 PM COMPARISON: 05/20/2016 HISTORY: Shortness of breath TECHNIQUE: Frontal and lateral views of the chest are obtained. FINDINGS: Scattered senescent parenchymal changes noted. Hyperinflation compatible with COPD. Persistent basilar atelectasis and/or infiltrates. Heart size is stable. Mediastinal structures are stable and grossly unremarkable. No evidence for hilar prominence. Degenerative changes dorsal spine. IMPRESSION: 1. Persistent basilar atelectasis and/or infiltrates.
[2016-05-22 20:36] VITALS: RESP 18; TEMP 98.8
[2016-05-22] MEDS ORDERED: cloZAPine 25 MG TAB PO SCH (21:00)
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
[2016-05-22] MEDS: AMOXIC-POT CLAV 875-125MG 1 EACH TAB PO SCH (22:04)
[2016-05-22] MEDS: IPRATROPIUM-ALBUTEROL 3 ML NEB INHALATION SCH (22:25)
[2016-05-23 06:45] VITALS: BP 162/84
[2016-05-23 06:51] LABS: Glucose,Whole Blood 73 mg/dL (75-99)
[2016-05-23] MEDS: INSULIN LISPRO (humaLOG) 300 UNIT/3 ML VIAL SQ SCH (08:00)
[2016-05-23] MEDS: POLYETHYLENE GLYCOL 3350 17 GM POWD.PACK PO SCH (08:58)
[2016-05-23] MEDS: predniSONE 10 MG TAB PO SCH (08:59)
[2016-05-23] MEDS: AMOXIC-POT CLAV 875-125MG 1 EACH TAB PO SCH (08:59)
[2016-05-23] MEDS ORDERED: cloZAPine 25 MG TAB PO SCH (09:00)
[2016-05-23] MEDS: CALCIUM CARB-VIT D 500MG-200UN 1 EACH TAB PO SCH (09:00)
[2016-05-23] MEDS: ASPIRIN 81 MG CHEW PO SCH (09:00)
[2016-05-23] MEDS: FAMOTIDINE 20 MG TAB PO SCH (09:00)
[2016-05-23] MEDS: SYMBICORT 160-4.5 MCG INHALER INHALATION SCH (11:16)
[2016-05-23] MEDS: IPRATROPIUM-ALBUTEROL 3 ML NEB INHALATION SCH ×2 (11:16)
[2016-05-23 11:24] VITALS: PULSE 88
[2016-05-23] MEDS ORDERED: DIVALPROEX ER 500 MG TAB.ER.24H PO SCH (12:00)
[2016-05-23 12:21] LABS: Glucose,Whole Blood 149 mg/dL (75-99)
--- NOTE | 2016-05-23 20:18 | PN ---
DATE OF SERVICE: 05/23/3016 PRESENTING COMPLAINT: Cough. INTERVAL HISTORY: This is a patient who was treated for pneumonia, was doing better, but again developed a bit more of a cough, tolerating a diet, overall doing better, including on the psych unit. Review of systems done for constitutional, cardiovascular, GI, pulmonary; relevant findings as above. Current medications are reviewed. On examination, temperature 98, pulse 80, respirations 18, blood pressure 130/73, pulse ox 93% on 2L. GENERAL APPEARANCE: Sitting up, comfortable. EYES: Pupils equal. Conjunctivae normal. NECK: JVD not raised. Mass not palpable. RESPIRATORY: Effort normal. LUNGS: Some basal crackles. CARDIOVASCULAR: First and second sounds normal. No edema. ABDOMEN: Soft, nontender. Liver and spleen not palpable. PSYCHIATRY: Alert and oriented x3. Mood and affect were normal. INVESTIGATIONS: Accu-Cheks are noted. ASSESSMENT: 1. Chronic obstructive pulmonary disease in a smoker. 2. Gastroesophageal reflux disease. 3. Essential hypertension. 4. Primary osteoarthritis of multiple joints, bilateral, chronic. 5. Schizoaffective disorder, bipolar type. 6. Chronic nicotine dependence. Patient is a smoker. 7. Pneumonia. PLAN: The patient has just completed a course of antibiotics a day ago. I did put her back on Augmentin, given she had some more cough. Could be simply atelectasis or bronchospasm from COPD. Will just run a few days of Augmentin. Otherwise, patient clinically looking much better. Thank you, Dr. Carias.
--- NOTE | 2016-05-23 21:47 | DS ---
DATE OF ADMISSION: 05/21/2016 DATE OF DISCHARGE: 05/23/2016 Consulting consult physician: Routine is Dr. Paz. Consulting provider: This provider: Dr. Paz. Consult reason for medical management. Do you want consulting provider notified: Yes. DISCHARGE DIAGNOSES: 1. Acute delirious reaction, resolved. 2. Schizoaffective disorder versus schizophrenia, paranoid type III. 3. Cognitive disorder, mild to moderate. 4. Chronic obstructive pulmonary disease. 5. Hypertension. 6. Chronic pain syndrome recently recovered from bilateral basilar pneumonia. For a brief summary of the admission notes, please refer to my history and physical examination. The patient was admitted to the mental health unit from the medical floor after she was seen in psychiatric consultation. Patient was treated for bilateral pneumonia and she was on high dose of steroid in addition to Augmentin. At the time of her admission, patient was agitated, not compliant with the care. She was hearing voices of her and brother and sister telling her bad things. She has fixed delusions that she was with twins. On the medical floor patient was on Clozaril total of 500 a day. I was consulted and I saw the patient a couple of times and I did check the Clozaril level. Clozapine level was 714. On May 21 I did receive the clozapine level from May 19 and it was slightly high 718 but norclozapine and ( ) was 151, As the patient was very drowsy and sedated, I did cut the clozapine especially after I did review the medical record from [facility]. Her last chest x-ray showed that the patient might have bilateral atelectasis versus effusion. Dr. Paz medically cleared the patient and he did recommend to continue the patient on tapering dose of prednisone in addition to continue Augmentin for another week. SUMMARY OF THE HOSPITAL COURSE: Patient was originally transferred from the medical floor to our unit on petition filed by the group teacher and clinical certificate; however, she did sign in voluntarily. Once she was admitted to the mental health unit, I did check her Depakote level and it was only 48.1 and as I mentioned the Clozaril level so I did adjust it and I did cut it down to 50 mg in the morning and 300 at bedtime. On May 23 I did order another clozapine level and the results are pending. I did adjust her Depakote and increase it from 750 mg daily to 1000 mg divided in two doses as the Depakote level was just 48.1. I do recommend to check her Depakote level in 3 days from today. Patient was seen by Dr. Paz on the floor and he did recommend that we continue prednisone 20 mg for another 4 days and then cut it down to just 10 mg. Patient is able to tolerate the medication without having any side effect especially since I cut down the Clozaril dose she was last sedated and less drugged. Regarding the mental status examination at the time of the discharge, patient is alert. She gives good eye contact. Speech is not spontaneous. Thought process is tangential. She denied any homicidal or suicidal ideation. She denied feeling of hopeless or helpless. There is no evidence of aggression or combative behavior. There is no evidence of hypomania or marco. She did verbalize fixed delusion just that she is with twins, but she denied any command auditory hallucination. Her insight and judgment are slight improving. PLAN: 1. Patient was discharged from the mental health unit today to go back to the snf. Patient was given one week supply of Augmentin to continue for 7 days for her pneumonia. 2. Prednisone 20 mg until May 27 and then decreased to just 10 mg daily. 3. Depakote extended-release 500 mg at noon and 500 mg at bedtime. I do recommend to recheck her Depakote level in 3 days. 4. Clozapine 50 mg in the morning and 300 mg at bedtime. I did order clozapine level today, the result is still pending at the time of the dictation. Patient to continue follow-up with [facility] in one week. Patient condition at the time of the discharge, stable.
[2016-05-24] MEDS ORDERED: predniSONE 20 MG TAB PO SCH (09:00)
[2016-05-26 07:17] LABS: Norclozapine 297 ng/mL (200-700)
[2016-05-26] MEDS ORDERED: predniSONE 10 MG TAB PO SCH (09:00)
== END 2016-05-23 12:47 | disposition home or self-care (01) | DRG 885 ==
LOC: 3MHU 05-21 23:12
PROVIDERS: ADMIT Psychiatry & Neurology Psychiatry; ATTEND Psychiatry & Neurology Psychiatry
DX: F20.0 Paranoid schizophrenia (principal); G93.41 Metabolic encephalopathy; J18.9 Pneumonia, unspecified organism; E87.1 Hypo-osmolality and hyponatremia; J44.0 Chronic obstructive pulmonary disease with (acute) lower respiratory infection; F25.0 Schizoaffective disorder, bipolar type; F99 Mental disorder, not otherwise specified; R41.0 Disorientation, unspecified; F17.290 Nicotine dependence, other tobacco product, uncomplicated; E11.22 Type 2 diabetes mellitus with diabetic chronic kidney disease; G89.4 Chronic pain syndrome; I12.9 Hypertensive chronic kidney disease with stage 1 through stage 4 chronic kidney disease, or unspecified chronic kidney disease; K21.9 Gastro-esophageal reflux disease without esophagitis; M15.9 Polyosteoarthritis, unspecified; N18.9 Chronic kidney disease, unspecified; F41.9 Anxiety disorder, unspecified; Z91.5 Personal history of self-harm; Z91.19 Patient's noncompliance with other medical treatment and regimen
CPT/HCPCS: 71020; 80159; 80164; 83036; 84443; 85025; 94640

== ENCOUNTER 2016-12-21 09:54 | Inpatient (IN) | payer MEDICARE, OTHER ==
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
[2016-12-21 11:24] LABS: Appearance,Urine Cloudy (Clear); Bacteria,Urine Many /hpf; Bilirubin,Urine Negative (Negative); Glucose,Urine (UA) Negative (Negative); Ketones,Urine 1+ (Negative); Leukocyte Esterase,Urine Large (Negative); Mucus,Urine Rare /hpf; Nitrite,Urine Positive (Negative); Particle Count 52898; Protein,Urine 1+ (Negative); RBC,Urine 5 /hpf (0-5); Specific Gravity,Urine 1.012 (1.001-1.035); Squamous Epithelial Cell,Urine 3 /hpf (0-4); UA Billing (MACRO vs. MICRO) MICRO; Urobilinogen,Urine <2.0 mg/dL (<2.0); WBC,Urine >182 /hpf (0-5)
[2016-12-21 12:33] LABS: Basophils # (A) 0.1 k/uL (0-0.2); Basophils % (A) 1 %; CH 32.2; CHCM 33.9; Eosinophils # (A) 0.3 k/uL (0-0.7); Eosinophils % (A) 2 %; HCT 52.9 % (34.0-46.0); HDW 2.83; HGB 17.7 gm/dL (11.4-16.0); Luc # (Auto) 0.24; Luc % (Auto) 2; Lymphocytes # (A) 2.1 k/uL (1.0-4.8); Lymphocytes % (A) 18 %; MCH 31.9 pg (25.0-35.0); MCHC 33.4 g/dL (31.0-37.0); MCV 95.6 fL (80.0-100.0); Mean Platelet Volume 6.4; Monocytes # (A) 0.9 k/uL (0-1.0); Monocytes % (A) 8 %; Neutrophils # (A) 8.3 k/uL (1.3-7.7); Neutrophils % (A) 70 %; RBC 5.53 m/uL (3.80-5.40); RDW 13.4 % (11.5-15.5); WBC (Perox) 11.67
[2016-12-21] MEDS ORDERED: SODIUM CHLORIDE 0.9% 1,000 ML IV STA (12:46)
[2016-12-21 13:22] LABS: ALT 34 U/L (9-52); AST 30 U/L (14-36); Alkaline Phosphatase 58 U/L (38-126); Anion Gap 16 mmol/L; Blood Urea Nitrogen 20 mg/dL (7-17); Calcium 9.9 mg/dL (8.4-10.2); Carbon Dioxide 18 mmol/L (22-30); Chloride 103 mmol/L (98-107); Glucose 77 mg/dL (74-99); Non-African American GFR(MDRD) >60 (>60 ml/min/1.73 sqM); Potassium 4.7 mmol/L (3.5-5.1); Sodium 137 mmol/L (137-145); Total Bilirubin 0.6 mg/dL (0.2-1.3); Total Protein 6.5 g/dL (6.3-8.2)
[2016-12-21] MEDS: SODIUM CHLORIDE 0.9% 1,000 ML IV SCH ×2 (13:29→22:16)
[2016-12-21] MEDS ORDERED: ALBUTEROL NEBULIZED 2.5 MG/3 ML INHALATION PRN (14:45)
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
[2016-12-21] MEDS ORDERED: IPRATROPIUM 0.5 MG/2.5 ML NEBU INHALATION SCH (16:00)
[2016-12-21] MEDS: IPRATROPIUM 0.5 MG/2.5 ML NEBU INHALATION SCH ×2 (16:25→20:27)
[2016-12-21] MEDS: DIVALPROEX ER 500 MG TAB.ER.24H PO SCH (20:13)
[2016-12-21] MEDS: SYMBICORT 160-4.5 MCG INHALER INHALATION SCH (20:27)
[2016-12-21 20:54] LABS: Glucose,Whole Blood 77 mg/dL (75-99)
[2016-12-22 03:00] LABS: Glucose,Whole Blood 66 mg/dL (75-99)
[2016-12-22] MEDS ORDERED: SODIUM CHLORIDE 0.9% 1,000 ML IV SCH (03:30)
[2016-12-22] MEDS: DEXTROSE 5%-0.9% NACL 1,000 ML IV SCH (03:44)
[2016-12-22 06:28] LABS: Glucose,Whole Blood 74 mg/dL (75-99)
[2016-12-22] MEDS: IPRATROPIUM 0.5 MG/2.5 ML NEBU INHALATION SCH ×4 (07:15→19:11)
[2016-12-22] MEDS: SYMBICORT 160-4.5 MCG INHALER INHALATION SCH ×2 (07:15→19:11)
[2016-12-22 07:54] LABS: CH 31.8; CHCM 33.4; HCT 47.7 % (34.0-46.0); HDW 2.85; MCH 32.1 pg (25.0-35.0); MCHC 33.6 g/dL (31.0-37.0); MCV 95.7 fL (80.0-100.0); Mean Platelet Volume 6.6; RBC 4.99 m/uL (3.80-5.40); RDW 12.9 % (11.5-15.5); WBC 12.4 k/uL (3.8-10.6)
[2016-12-22 08:08] LABS: Anion Gap 13 mmol/L; Blood Urea Nitrogen 18 mg/dL (7-17); Calcium 8.8 mg/dL (8.4-10.2); Carbon Dioxide 16 mmol/L (22-30); Chloride 108 mmol/L (98-107); Glucose 65 mg/dL (74-99); Non-African American GFR(MDRD) >60 (>60 ml/min/1.73 sqM); Potassium 4.3 mmol/L (3.5-5.1); Sodium 137 mmol/L (137-145)
[2016-12-22] MEDS: FLUoxetine HCL 20 MG CAP PO SCH (09:57)
[2016-12-22] MEDS: ASPIRIN 81 MG PO SCH (09:57)
[2016-12-22] MEDS: CALCIUM CARB-VIT D 500MG-200UN 1 EACH TAB PO SCH (09:57)
[2016-12-22] MEDS: DIVALPROEX ER 500 MG TAB.ER.24H PO SCH ×2 (09:57→20:24)
[2016-12-22 11:56] LABS: Glucose,Whole Blood 85 mg/dL (75-99)
[2016-12-22] MEDS ORDERED: OLANZapine 10 MG TAB PO ONE ×2 (16:00→21:00)
--- NOTE | 2016-12-22 17:13 | P.PN ---
Subjective Principal diagnosis: 1. Encephalopathy 2. Bipolar disorder 3. Depression This is a 66-year-old female that presented with acute mental status changes after having stopped her mental health medications. The patient was admitted 24 hours ago had a positive urine analysis and is being treated for possible urinary tract infection. On my assessment today the patient is alert she answers yes and no appropriately to questions but refuses to verbally give me answers. sHe denies any significant pain, chest pain or shortness of breath, no abdominal discomfort no nausea no vomiting no headaches. Her nurse today tells me that she has cared for this patient in the past and her main issue at this point appears to be her mental health, her depression. The patient apparently requested earlier this morning to be a DO NOT RESUSCITATE, however she was counseled that this is really a decision for her legal guardian. Since then the nurse states that the patient decided to not verbalize or answer questions other than nodding yes or no. Objective - Vital Signs Vital signs: Vital Signs Temp 97.8 F 12/22/16 15:00 Pulse 78 12/22/16 15:00 Resp 16 12/22/16 15:16 BP 159/83 12/22/16 15:00 Pulse Ox 93 L 12/22/16 15:00 Intake & Output 12/21/16 12/22/16 12/22/16 18:59 06:59 18:59 Weight 53.07 kg Other: Voiding Method Toilet Toilet Toilet # Voids 2 3 - Exam Constitutional: No acute distress, Flat affect, non verbal Eyes: Anicteric sclerae, moist conjunctiva, Left lid lag ENMT: NC/AT Oropharynx clear, no erythema, exudates Neck: Supple, FROM, no masses, or JVD No carotid bruits No thyromegaly Lungs: Clear to auscultation Clear to percussion Normal respiratory effort, no accessory muscle use Cardiovascular: Heart regular in rate and rhythm, No murmurs, gallops, or rubs No peripheral edema Abdominal: Soft Nontender, no guarding, rebound or rigidity Abdomen moving with respiration Normoactive bowel sounds No hepatomegaly, No splenomegaly No palpable mass Skin: Normal temperature, tone, texture, turgor Extremities: No digital cyanosis No clubbing Pedal pulses intact and symmetrical Radial pulses intact and symmetrical Normal gait and station No calf tenderness Psychiatric: Alert and oriented to person, place. Flat affect Neuro: Moves all 4 extremities spontaneously Sensation to light touch grossly present throughout No focal sensory deficits - Labs CBC & Chem 7: 12/22/16 07:09 12/22/16 07:09 Labs: Abnormal Lab Results - Last 24 Hours (Table) 12/22/16 12/22/16 12/22/16 Range/Units 02:59 06:27 07:09 WBC (3.8-10.6) k/uL Hct (34.0-46.0) % Chloride 108 H (98-107) mmol/L Carbon Dioxide 16 L (22-30) mmol/L BUN 18 H (7-17) mg/dL Glucose 65 L (74-99) mg/dL POC Glucose (mg/dL) 66 L 74 L (75-99) mg/dL 12/22/16 Range/Units 07:09 WBC 12.4 H (3.8-10.6) k/uL Hct 47.7 H (34.0-46.0) % Chloride (98-107) mmol/L Carbon Dioxide (22-30) mmol/L BUN (7-17) mg/dL Glucose (74-99) mg/dL POC Glucose (mg/dL) (75-99) mg/dL Microbiology - Last 24 Hours (Table) 12/21/16 11:04 Urine Culture - Preliminary Urine,Voided Assessment and Plan (1) Altered mental status Status: Acute (2) UTI (urinary tract infection) Status: Acute (3) Bipolar disorder Status: Acute Plan: 1. Awaiting psychiatric assistance with patient's mental health treatment. At this point we'll continue her on her usual home regimen. She is however refusing to swallow oral medications. We'll wait to see if psychiatry recommends and the IM/IVmedication 2. Continue with intravenous antibiotic therapy for presumed urinary tract infection, cultures are pending. Plan 3 days total 3. Will check blood glucose levels before meals, at bedtime and at 2 AM as patient is refusing oral intake. 4. Continue with intravenous dextrose until patient's appetite improves. 5. Check morning electrolytes and labs. 6. Discontinue normal saline. 7. DVT prophylaxis per protocol 8. Full code Time with Patient: Less than 30
[2016-12-22 17:32] LABS: Glucose,Whole Blood 78 mg/dL (75-99)
[2016-12-22 20:46] LABS: Glucose,Whole Blood 75 mg/dL (75-99)
[2016-12-23 02:08] LABS: Glucose,Whole Blood 77 mg/dL (75-99)
[2016-12-23] MEDS: DEXTROSE 5%-0.9% NACL 1,000 ML IV SCH (04:01)
--- NOTE | 2016-12-23 05:29 | CONS ---
CONSULTATION DATE OF CONSULTATION: 12/22/2016 REASON FOR CONSULTATION: Evaluate for psychosis. HISTORY OF PRESENT ILLNESS: The patient was admitted to the medical floor due to significant decline in general function. She stopped taking medications. She was resisting eating or taking in fluids. She has had significant behavior change in the last few days where she essentially has become non communicative. Her [facility] showcase trimmer, was in the room when I saw the patient. The showcase trimmer noted that last week the [facility] prescriber had made a home visit in the middle of the week and apparently the patient was doing quite well at that time, she was quite conversant and interactive. She had a good mood. Her thoughts were clear. There was no indication of thought disorder. She was functioning well. The patient has had past psychiatric hospitalizations. She has had some periods where she gets very distressed about her living situation and the staff that support her. It does appear that this may relate to her developing paranoid thinking where she identifies staff people as ones who are against her. She also has had quite severe paranoid delusions about feeling threatened that people will do her harm. According to nursing today she has been minimally communicative and mostly will only shake her head yes or no for some questions though otherwise makes no effort to respond to the majority of questions. She took some medications this morning but resisted taking her Depakote apparently in part because the pill was too large. She has been resistant to eating or drinking any fluids. She has a significant history of psychiatric issues including a diagnosis of schizoaffective disorder and depression. She has had episodes of acute psychosis. MENTAL STATUS: The patient was in bed lying down. Her eyes are open. She would establish some eye contact. Sometimes she would look away and she did not make any effort to answer most questions. Though every once in a while to specific questions she would shake her head mainly no. When I asked her if she was hungry and wanted some food, she shook her head no. When I asked her if she would try to take her Depakote she shook her head no. When I offered her the option of some alternative medications, she did not make any effort to respond positively or negatively. She had the same manner of response to the showcase trimmer and nurse. She appeared to be moderately distressed. ASSESSMENT: This 66-year-old female is diagnosed with acute psychosis. It is unclear what the precipitants are. I will give a 1 time dose of Zyprexa 10 mg. The aim is to target symptoms of psychosis. If she is willing to take a 1 time dose, I would look at starting her on some medications on a regular basis. Most likely an antipsychotic. I will continue to follow. I will get updates from nursing staff today. ABRAM / HOWARDN: [id number] /
[2016-12-23] MEDS: FLUoxetine HCL 20 MG CAP PO SCH (07:27)
[2016-12-23] MEDS: DIVALPROEX ER 500 MG TAB.ER.24H PO SCH ×2 (07:28→20:05)
[2016-12-23] MEDS: ASPIRIN 81 MG PO SCH (07:28)
[2016-12-23] MEDS: CALCIUM CARB-VIT D 500MG-200UN 1 EACH TAB PO SCH (07:28)
[2016-12-23 07:35] LABS: Glucose,Whole Blood 77 mg/dL (75-99)
[2016-12-23 07:55] LABS: Basophils # (A) 0.1 k/uL (0-0.2); Basophils % (A) 2 %; CH 31.8; CHCM 33.4; Eosinophils # (A) 0.6 k/uL (0-0.7); Eosinophils % (A) 7 %; HCT 48.8 % (34.0-46.0); HDW 2.85; HGB 16.4 gm/dL (11.4-16.0); Luc # (Auto) 0.21; Luc % (Auto) 2; Lymphocytes # (A) 2.3 k/uL (1.0-4.8); Lymphocytes % (A) 26 %; MCHC 33.5 g/dL (31.0-37.0); MCV 95.5 fL (80.0-100.0); Mean Platelet Volume 7.3; Monocytes # (A) 0.8 k/uL (0-1.0); Monocytes % (A) 10 %; Neutrophils # (A) 4.8 k/uL (1.3-7.7); Neutrophils % (A) 54 %; RBC 5.11 m/uL (3.80-5.40); RDW 13.1 % (11.5-15.5); WBC 8.9 k/uL (3.8-10.6); WBC (Perox) 8.75
[2016-12-23] MEDS: IPRATROPIUM 0.5 MG/2.5 ML NEBU INHALATION SCH ×4 (08:00→20:51)
[2016-12-23] MEDS: SYMBICORT 160-4.5 MCG INHALER INHALATION SCH ×2 (08:00→20:51)
[2016-12-23 08:08] LABS: Anion Gap 9 mmol/L; Blood Urea Nitrogen 15 mg/dL (7-17); Calcium 9.4 mg/dL (8.4-10.2); Carbon Dioxide 23 mmol/L (22-30); Chloride 106 mmol/L (98-107); Glucose 64 mg/dL (74-99); Non-African American GFR(MDRD) >60 (>60 ml/min/1.73 sqM); Potassium 3.7 mmol/L (3.5-5.1); Sodium 138 mmol/L (137-145)
[2016-12-23] MEDS: OLANZapine 10 MG TAB PO SCH ×2 (10:32→20:05)
[2016-12-23 12:17] LABS: Glucose,Whole Blood 79 mg/dL (75-99)
--- NOTE | 2016-12-23 13:16 | P.PN ---
Subjective Principal diagnosis: 1. Encephalopathy 2. Bipolar disorder 3. Depression New 12/23/2016: 1. UTI, sensitivities pending Patient was seen and evaluated. Again she remains nonverbal. She does appear to nod appropriately to yes no questions. She does not appear to be in any pain or uncomfortable. No new issues overnight Objective - Vital Signs Vital signs: Vital Signs Temp 96.9 F L 12/23/16 07:00 Pulse 72 12/23/16 07:00 Resp 14 12/23/16 07:00 BP 174/78 12/23/16 07:00 Pulse Ox 92 L 12/23/16 07:00 Intake & Output 12/22/16 12/23/16 12/23/16 18:59 06:59 18:59 Other: Voiding Method Toilet Toilet # Voids 3 2 2 - Exam Constitutional: No acute distress, non verbal Eyes: Anicteric sclerae, moist conjunctiva Lungs: Clear to auscultation Normal respiratory effort, no accessory muscle use Cardiovascular: Heart regular in rate and rhythm, No murmurs, gallops, or rubs No peripheral edema Abdominal: Soft Nontender, no guarding, rebound or rigidity Abdomen moving with respiration Normoactive bowel sounds No hepatomegaly, No splenomegaly No palpable mass Skin: Normal temperature, tone, texture, turgor Extremities: No digital cyanosis No clubbing Pedal pulses intact and symmetrical Radial pulses intact and symmetrical Normal gait and station No calf tenderness Psychiatric: Alert , non verbal - Labs CBC & Chem 7: 12/23/16 07:11 12/23/16 07:11 Labs: Abnormal Lab Results - Last 24 Hours (Table) 12/23/16 12/23/16 Range/Units 07:11 07:11 Hgb 16.4 H (11.4-16.0) gm/dL Hct 48.8 H (34.0-46.0) % Glucose 64 L (74-99) mg/dL Microbiology - Last 24 Hours (Table) 12/21/16 11:04 Urine Culture - Preliminary Urine,Voided Gram Neg Bacilli Assessment and Plan (1) Altered mental status Status: Acute (2) UTI (urinary tract infection) Status: Acute (3) Bipolar disorder Status: Acute Plan: 1. UTI * Continue with IV Ceftriaxone * Follow up sensitivities to determine if any need to change or extend course on discharge 2. Bipolar/Depression * appreciate psychiatric input, patient will be discharged to inpatient psychiatry once final urine cultures are known 3. Encephalopathy * resolved, she is alert. But main issue now is her mental health. 4. Disposition: Follow up urine culture/sensitivites. Discharge to inpatient psychiatry once this is known Time with Patient: Less than 30
[2016-12-23 17:19] LABS: Glucose,Whole Blood 80 mg/dL (75-99)
--- NOTE | 2016-12-23 18:08 | CDI ---
In responding to this query, please exercise your independent professional judgment. The [facility] Coding Staff and Clinical Documentation Specialists appreciate your assistance in clarifying documentation, maintaining compliance with coding guidelines, accurately documenting patients condition and capturing severity of illness. The fact that a question is asked does not imply that any particular answer is desired or expected. Communication forms are a method of clarifying documentation and are not made part of the Legal Health Record. Thank you in advance for your clarification. Last Revision, May 2015 Dinh [address] [facility] [place] [address] Documentation Clarification Form Date: 12/23/2016 5:51:00 PM From: Fartun Lucero RN, CCDS Admit Date: 12/21/2016 12:53:00 PM Patient Name: Rani Saha Visit Number: [id number] Discharge Date: Dr. Teresa Stinson Altered mental status and Encephalopathy was documented in the H&P and progress notes Patient history/risk factors: COPD, DM, Hypertension, CKD stage III, Bipolar, Panic Disorder, PTSD, Schizoeffective disorder Clinical Indicators: Presented with acute mental status changes after having stopped her mental health medications. She has a positive urine analysis, and is being treated for UTI. Vital signs: 153/88 89 16 97.9 Labs: WBC 12.4, UA: Leukocyte Esterase- Large, WBC moderate; Nitrite-Positive; Urine Culture Preliminary-Gram Neg Bacilli Treatment: Neurological assessment per protocol Rocephin IV In your professional opinion, please clarify the etiology of the altered mental status, if known. Encephalopathy Type: Metabolic, Toxic, Other, (specify cause if known) Other condition (please specify) Unable to determine Please document in your progress notes and discharge summary in order to capture severity of illness and risk of mortality. Include clinical findings that support your diagnosis. FYI: Press F11 to launch patient chart. Toxic encephalopathy secondary to UTI-resolved. I have added addendum's to notes and will make sure its on summary thank you KECIA
--- NOTE | 2016-12-23 20:42 | CONS ---
CONSULTATION DATE OF CONSULTATION: 12/23/2016. REASON FOR CONSULTATION: Evaluate for psychosis. INTERVAL HISTORY: The patient has been doing fair. She had a quiet evening last night. She ate a little. She slept fairly well. Today she has been up. She declined eating breakfast. It is noteworthy that she is marginally more responsive today. When I talked to her she responded back with 1 or 2-word responses. Sometimes she did not answer questions, though generally she responded to at least 2 out of 3 questions. Sometimes she did not, so mostly she was verbal. She seemed to be accepting of the idea that she might need a psychiatric admission prior to a discharge. I reviewed her case with her [facility] prescriber, LiyaParris valdovinos. Ms. Gibson indicates that she had seen the patient at her home on the . The information she provided was somewhat different than what I had heard from the pillowcase cutter. Ms. Gibson noted that the patient was in bed lying down. She stayed in bed throughout the conversation. She did respond verbally, though she did not say a lot. She was pretty hesitant in her responses. It is noted that the patient apparently had not been doing well since July. She had been taken off of Prozac at one point because of an elevated clozapine level. December 03, her clozapine was discontinued due to problems that the patient was having and the appearance of lack of responsiveness to the medication. Since July, she had not been leaving the house. She was just recently restarted on Prozac. Ms. Gibson felt that the combination of clozapine and Depakote were not effective as the reason for the medication change. When I saw the patient this morning, she was lying in bed. She had a head of her bed up which was different than yesterday. She gave fair eye contact. There was latency in her responses. She answered verbally to some of the questions. Her affect was flat, her mood reserved. She seemed moderately distressed. ASSESSMENT: Continue the current diagnosis and treatment plan. I will continue the patient on Zyprexa 10 mg twice a day for a presumed diagnosis of psychosis. She is also on Prozac 20 mg a day and Depakote 500 mg twice a day. I will obtain a Depakote level. Whether or not she benefits from Depakote remains to be seen. I would consider an admission to the psychiatric unit once she is medically stable. We will coordinate with [facility] for followup care. MMLETICIA / HOWARDN: [id number] /
[2016-12-23 21:16] LABS: Glucose,Whole Blood 89 mg/dL (75-99)
[2016-12-24 02:11] LABS: Glucose,Whole Blood 80 mg/dL (75-99)
[2016-12-24] MEDS: DEXTROSE 5%-0.9% NACL 1,000 ML IV SCH (06:10)
[2016-12-24 07:36] LABS: Glucose,Whole Blood 88 mg/dL (75-99)
[2016-12-24 08:01] LABS: Basophils # (A) 0.1 k/uL (0-0.2); Basophils % (A) 1 %; CH 32.8; CHCM 34.6; Eosinophils # (A) 0.7 k/uL (0-0.7); Eosinophils % (A) 8 %; HCT 48.7 % (34.0-46.0); HGB 16.3 gm/dL (11.4-16.0); Luc # (Auto) 0.21; Luc % (Auto) 2; Lymphocytes # (A) 2.8 k/uL (1.0-4.8); Lymphocytes % (A) 32 %; MCHC 33.6 g/dL (31.0-37.0); MCV 95.2 fL (80.0-100.0); Mean Platelet Volume 7.1; Monocytes # (A) 0.8 k/uL (0-1.0); Monocytes % (A) 9 %; Neutrophils % (A) 47 %; RBC 5.11 m/uL (3.80-5.40); RDW 14.6 % (11.5-15.5); WBC 8.6 k/uL (3.8-10.6); WBC (Perox) 8.11
[2016-12-24] MEDS: FLUoxetine HCL 20 MG CAP PO SCH (08:43)
[2016-12-24] MEDS: ASPIRIN 81 MG PO SCH (08:43)
[2016-12-24] MEDS: OLANZapine 10 MG TAB PO SCH (08:43)
[2016-12-24] MEDS: DIVALPROEX ER 500 MG TAB.ER.24H PO SCH (08:43)
[2016-12-24] MEDS: CALCIUM CARB-VIT D 500MG-200UN 1 EACH TAB PO SCH (08:43)
[2016-12-24] MEDS: IPRATROPIUM 0.5 MG/2.5 ML NEBU INHALATION SCH ×3 (09:23→15:21)
[2016-12-24] MEDS: SYMBICORT 160-4.5 MCG INHALER INHALATION SCH (09:23)
--- NOTE | 2016-12-24 10:09 | P.DS ---
Providers Date of admission: 12/21/16 12:53 Expected date of discharge: 12/24/16 Attending physician: Fabi Lee DO Consults: 12/21/16 12:57 Consult Physician Routine Consulting Provider: Alfredo Baldwin Consult Reason/Comments: Pysch consult Do you want consulting provider notified?: Yes Primary care physician: Stated None - Discharge Diagnosis(es) (1) Altered mental status Current Visit: Yes Status: Acute (2) UTI (urinary tract infection) Current Visit: Yes Status: Acute (3) Bipolar disorder Current Visit: No Status: Acute Hospital Course: This is a 66-year-old female that was admitted to our facility on 12/21/2016 with: 1. Acute toxic encephalopathy secondary to urinary tract infection present on admission: This is a 66-year-old female who is got a past medical history significant for mental health that includes documented bipolar disorder and schizophrenia per our records who was brought to our facility after having some progressive confusion and encephalopathy. The patient had been refusing to take any of her medications. The patient was seen and evaluated in the emergency room and admitted to our facility as she had a positive urine analysis which was felt to be contributing to her toxic encephalopathy. The patient was initiated on intravenous ceftriaxone therapy empirically. Her urine cultures did grow back Citrobacter murliniae which only had intermediate sensitivity to ceftriaxone. Clinically the patient had improved from a toxic encephalopathy perspective and was back to her usual baseline. She was transitioned to oral ciprofloxacin 250 mg 1 tablet twice daily for a treatment course of 3 days given the sensitivities of the urine cultures. Medically the patient was stable however she was still refusing to take her medications and with evaluated for psychosis by psychiatry. 2. Acute psychoses secondary to noncompliance with medications: The patient was seen and evaluated by psychiatry in consultation during this hospitalization. She was started on Zyprexa which did appear to improve her overall cooperation with medications. Given her mental health illness however psychiatry does recommend that the patient be transferred to inpatient psychiatric services for ongoing treatment on discharge. She had no other acute medical issues and on 12/24/2016 she is being discharged to inpatient psychiatry for ongoing treatment of her mental health. We appreciate the opportunity to have participated in your patient's care if you have any questions regarding this patient's hospitalization and discharge plan please feel free to page sound physician hospitalist service. Patient Condition at Discharge: Stable Plan - Discharge Summary New Discharge Prescriptions: New Ciprofloxacin/Ciprofloxa HCl [Ciprofloxacin ER] 250 mg PO BID #6 tab OLANZapine [ZyPREXA] 10 mg PO BID tab Continue Calcium Carbonate/Vitamin D3 [Calcium 600-Vit D3 200 Tablet] 1 tab PO QAM Budesonide-Formot 160-4.5 Mcg [Symbicort 160-4.5 Mcg Inhaler] 2 puff INHALATION RT-BID Aspirin EC [Ecotrin Low Dose] 81 mg PO QAM Tiotropium [place] [Spiriva] 1 cap INHALATION RT-DAILY Polyethylene Glycol 3350 [Miralax] 17 gm PO DAILY@1200 Albuterol Inhaler [Ventolin Hfa Inhaler] 2 puff INHALATION RT-TID PRN PRN Reason: Shortness Of Breath FLUoxetine HCL [PROzac] 20 mg PO DAILY Divalproex Sodium [Depakote ER] 500 mg PO BID Albuterol Nebulized [Ventolin Nebulized] 2.5 mg INHALATION RT-QID Discontinued Cranberry Conc/C/Bacill Coag [Cranberry Tablet] 1 tab PO BID traMADol HCl [Ultram] 50 mg PO BID PRN PRN Reason: Pain Famotidine 20 mg PO QAM Discharge Medication List Albuterol Inhaler [Ventolin Hfa Inhaler] 2 puff INHALATION RT-TID PRN 05/14/16 [ History] Aspirin EC [Ecotrin Low Dose] 81 mg PO QAM 05/14/16 [History] Budesonide-Formot 160-4.5 Mcg [Symbicort 160-4.5 Mcg Inhaler] 2 puff INHALATION RT-BID 05/14/16 [History] Calcium Carbonate/Vitamin D3 [Calcium 600-Vit D3 200 Tablet] 1 tab PO QAM [History] Polyethylene Glycol 3350 [Miralax] 17 gm PO DAILY@1200 05/14/16 [History] Tiotropium [place] [Spiriva] 1 cap INHALATION RT-DAILY 05/14/16 [History] Albuterol Nebulized [Ventolin Nebulized] 2.5 mg INHALATION RT-QID 12/21/16 [ History] Divalproex Sodium [Depakote ER] 500 mg PO BID 12/21/16 [History] FLUoxetine HCL [PROzac] 20 mg PO DAILY 12/21/16 [History] Ciprofloxacin/Ciprofloxa HCl [Ciprofloxacin ER] 250 mg PO BID #6 tab 12/24/16 [ Rx] OLANZapine [ZyPREXA] 10 mg PO BID tab 12/24/16 [Rx] Follow up Appointment(s)/Referral(s): Jassi Gomez MD [REFERRING] - 1 Week Patient Instructions/Handouts: Urinary Tract Infection in Women (DC) Activity/Diet/Wound Care/Special Instructions: Kayden AF on discharge. No smoking, cessation information given. Diabetic diet.
[2016-12-24 12:13] LABS: Glucose,Whole Blood 97 mg/dL (75-99)
[2016-12-24 14:50] VITALS: BP 152/94; PULSE 95; RESP 16; TEMP 98.1
== END 2016-12-24 15:38 | DRG 689 ==
LOC: EC 09:54 → 4MS4W 12:53
PROVIDERS: ADMIT Internal Medicine; ATTEND Internal Medicine
DX: N30.90 Cystitis, unspecified without hematuria (principal); G92 Toxic encephalopathy; E87.2 Acidosis; E11.22 Type 2 diabetes mellitus with diabetic chronic kidney disease; N18.3 Chronic kidney disease, stage 3 (moderate); F17.200 Nicotine dependence, unspecified, uncomplicated; F31.9 Bipolar disorder, unspecified; F41.0 Panic disorder [episodic paroxysmal anxiety]; F43.10 Post-traumatic stress disorder, unspecified; I12.9 Hypertensive chronic kidney disease with stage 1 through stage 4 chronic kidney disease, or unspecified chronic kidney disease; J44.9 Chronic obstructive pulmonary disease, unspecified; K21.9 Gastro-esophageal reflux disease without esophagitis; K58.9 Irritable bowel syndrome, unspecified; M17.0 Bilateral primary osteoarthritis of knee; R32 Unspecified urinary incontinence; F20.9 Schizophrenia, unspecified; Z66 Do not resuscitate; Z91.14 Patient's other noncompliance with medication regimen; Z79.82 Long term (current) use of aspirin; Z79.899 Other long term (current) drug therapy; Z88.1 Allergy status to other antibiotic agents; Z88.5 Allergy status to narcotic agent; Z88.8 Allergy status to other drugs, medicaments and biological substances; Z86.14 Personal history of Methicillin resistant Staphylococcus aureus infection; Z87.440 Personal history of urinary (tract) infections
CPT/HCPCS: 36415; 80048; 80053; 80306; 80320; 81001; 85025; 85027; 87077; 87086; 87186; 96361; 96365; 99285

== ENCOUNTER 2017-06-16 09:51 | Inpatient (IN) | payer MEDICARE, MEDICAID ==
[2017-06-16] MEDS ORDERED: SODIUM CHLORIDE 0.9% 500 ML IV ONE (10:53)
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
[2017-06-16] MEDS ORDERED: MAG HYDROX/AL HYDROX/SIMETH 30 ML CUP PO PRN (16:40)
[2017-06-16] MEDS ORDERED: MAGNESIUM HYDROXIDE 2,400 MG/10 ML CUP PO PRN (16:40)
[2017-06-16] MEDS: FLUoxetine HCL 20 MG CAP PO SCH ×2 (17:10→17:20)
[2017-06-16] MEDS: LORazepam 1 MG TAB PO PRN (17:10)
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
[2017-06-16] MEDS ORDERED: ALBUTEROL NEBULIZED 2.5 MG/3 ML INHALATION SCH (20:00)
[2017-06-16] MEDS ORDERED: ALBUTEROL INHALER 60 PUFF/8 GM INHALER INHALATION SCH (20:00)
[2017-06-16] MEDS: SYMBICORT 160-4.5 MCG INHALER INHALATION SCH (20:46)
[2017-06-16] MEDS ORDERED: DIVALPROEX ER 500 MG TAB.ER.24H PO SCH (21:00)
[2017-06-16] MEDS: CEFDINIR 300 MG CAP PO SCH ×2 (21:03→21:31)
[2017-06-16] MEDS ORDERED: ALBUTEROL NEBULIZED 2.5 MG/3 ML INHALATION PRN (21:43)
[2017-06-17] MEDS ORDERED: ARIPiprazole 15 MG TAB PO SCH (09:00)
[2017-06-17] MEDS: CEFDINIR 300 MG CAP PO SCH ×2 (09:06→21:24)
[2017-06-17 10:11] LABS: Albumin 3.5 g/dL (3.5-5.0); Calcium 9.5 mg/dL (8.4-10.2); Potassium 4.2 mmol/L (3.5-5.1); Total Bilirubin 0.4 mg/dL (0.2-1.3)
[2017-06-17 10:13] LABS: Basophils # (A) 0.1 k/uL (0-0.2); Basophils % (A) 1 %; Eosinophils # (A) 0.7 k/uL (0-0.7); Eosinophils % (A) 8 %; HCT 42.7 % (34.0-46.0); HGB 14.2 gm/dL (11.4-16.0); Lymphocytes # (A) 1.5 k/uL (1.0-4.8); Lymphocytes % (A) 16 %; MCH 30.5 pg (25.0-35.0); MCHC 33.3 g/dL (31.0-37.0); MCV 91.7 fL (80.0-100.0); Mean Platelet Volume 6.9; Monocytes # (A) 0.6 k/uL (0-1.0); Monocytes % (A) 6 %; Neutrophils # (A) 6.1 k/uL (1.3-7.7); Neutrophils % (A) 68 %; Platelet Count 298 k/uL (150-450); RBC 4.66 m/uL (3.80-5.40); RDW 12.8 % (11.5-15.5)
--- NOTE | 2017-06-17 10:35 | P.HP ---
Psychiatric H&P - . H&P Date: 06/17/17 History & Physical: Allergies Allergy/AdvReac Type Severity Reaction Status Date / Time aspirin Allergy Unknown Verified 06/16/17 10:17 baclofen Allergy Unknown Verified 06/16/17 10:17 chlorpromazine HCl Allergy Unknown Verified 06/16/17 10:17 [From Thorazine] codeine Allergy Unknown Verified 06/16/17 10:17 hydromorphone [From Dilaudid] Allergy Unknown Verified 06/16/17 10:17 phenytoin sodium Allergy Unknown Verified 06/16/17 10:17 [From Dilantin] phenytoin sodium extended Allergy Unknown Verified 06/16/17 10:17 [From Dilantin] salicylates [salicylate] Allergy Unknown Verified 06/16/17 10:17 Tetracyclines Allergy Unknown Verified 06/16/17 10:17 Vital Signs Temp 98.7 F 06/17/17 07:07 Pulse 72 06/17/17 09:00 Resp 16 06/17/17 09:00 BP 119/56 06/17/17 09:00 Pulse Ox 90 L 06/17/17 07:07 Intake & Output 06/16/17 06/17/17 06/17/17 18:59 06:59 18:59 Weight 45.359 kg 06/17/17 10:17 Identification: Rani Saha is a 67 years old single white female living in [facility]. She was readmitted to [facility] on under a petition and certificate stating that she is psychotic, has schizophrenia and is refusing treatment. History of present illness: Patient said she has urinary tract infection was prescribed ampicillin and is taking that medication. She denies any psychiatric issues or problems. She said she is doing well and does not need any hospitalization. According to the records patient was recently diagnosed with UTI and was started on antibiotics. She has not been taking her medications including antibiotic stating that her medicines are poison. Apparently she lives in a [facility] but she insists that she is not. She refused to tell me where exactly she lives except saying that she is in [place]. She denies hallucinations delusional thinking problem with her temper sleep appetite etc. Previous psychiatric history/drug and alcohol abuse: Apparently she was in psychiatric hospitals including this one several times. It is not clear where she gets her outpatient treatment. She denies abusing drugs and alcohol. Apparently she is on Abilify 15 mg daily albuterol inhaler albuterol nebulizer aspirin(even though her chart says she is ALLERGIC to aspirin) Symbicort calcium carbonate Vantin Depakote Prozac lisinopril and Spiriva. Previous medical history: Patient's chart is flagged for ALLERGY to aspirin(but , she is on aspirin 81 mg a day), baclofen, Thorazine, codeine, hydromorphone, Dilantin and tetracyclines. Patient has bronchial asthma, hypertension and may be seizure disorder. Further information is not available. Social history: Patient refuses to provide reliable history. Apparently she lives in a m[facility]. Family history: Not available. Mental status examination: This is a small built rather skinny ambulatory white female with adequate hygiene. She does not show any psychomotor agitation or retardation. But she has fine resting hand tremors. Her speech is soft short and goal-directed even though she refuses to provide good history and denies all problems. Her mood is rather irritable and affect is constricted in range. She denies hallucinations and delusional thinking. But according to her records she has been refusing her medications stating that they are poison. She denies suicidal and homicidal thoughts. She is able to say that she is at [facility]. But she said today is 06/13/2015. She named the last 4 presidents as Trud, Trump and you. She refused to answer questions to evaluate other aspects of cognition her insight is poor and judgment is grossly impaired as evidenced by her refusal to take medicine, refuses to sign papers etc. Diagnostic impression: Schizophrenia F 20.9. ALLERGY to baclofen Thorazine codeine hydromorphone Dilantin tetracyclines. I don't think she is ALLERGIC to aspirin since she is on it even though her chart is flagged for ALLERGY to aspirin. COPD. Probable seizure disorder. Treatment plan: She already had her physical examination. She will have psychosocial evaluation. She will receive milieu therapy group therapy individual therapy occupational therapy recreational therapy and medication education. Since she has hand tremors I will change her Abilify to Seroquel with least EPS and lot closer to clozapine. Adjust the dose as necessary. Continue Depakote lisinopril and other medications for physical problems. Initiate commitment since she refuses to sign voluntary application and refuses to sign medication consent. Discharge with outpatient follow-up. Treatment goal: She will continue to be free of suicide and homicide thoughts. She will take medications as prescribed. She will be free of psychotic symptoms. She will learn better coping skills. Estimated length of stay: 7-14 days.
[2017-06-17] MEDS: SYMBICORT 160-4.5 MCG INHALER INHALATION SCH ×2 (10:45→22:01)
[2017-06-17] MEDS: TIOTROPIUM 18 MCG/PUFF INHALER INHALATION SCH (10:45)
[2017-06-17] MEDS: ALBUTEROL INHALER 60 PUFF/8 GM INHALER INHALATION SCH ×2 (10:45→22:01)
[2017-06-17] MEDS: LISINOPRIL-HCTZ 10-12.5 MG 1 EACH TAB PO SCH (11:20)
[2017-06-17] MEDS: CALCIUM CARB-VIT D 500MG-200UN 1 EACH TAB PO SCH (13:13)
[2017-06-17] MEDS ORDERED: QUEtiapine 50 MG TAB PO SCH (21:00)
[2017-06-18] MEDS: CEFDINIR 300 MG CAP PO SCH ×2 (09:09→21:47)
[2017-06-18] MEDS: LISINOPRIL-HCTZ 10-12.5 MG 1 EACH TAB PO SCH ×2 (09:10→09:20)
[2017-06-18] MEDS: DIVALPROEX ER 500 MG TAB.ER.24H PO SCH (09:10)
--- NOTE | 2017-06-18 10:51 | P.PN ---
Progress Note - Text Progress Note Date: 06/18/17 Patient was seen for a follow-up examination. She is little calmer and more cooperative today. She ate all her breakfast. She has been taking her medications. She stays in her room and does not socialize or attend groups. This is a white ambulatory female with adequate hygiene she is more cooperative today. She said she slept well last night. Denies any adverse effects from Seroquel. She does not show any psychomotor agitation or retardation. Her speech is short and sometimes she just nods or shakes her head in response to questions. Apparently she is unsure if she has a guardian. She did not respond to questions to assess suicide homicide thoughts hallucinations or delusional thinking. She is oriented to place. Her insight is poor and judgment is impaired as evidenced by not providing good information. Plan: Increase Seroquel 200 mg at bedtime, continue therapies.
[2017-06-18] MEDS: TIOTROPIUM 18 MCG/PUFF INHALER INHALATION SCH (11:09)
[2017-06-18] MEDS: ALBUTEROL INHALER 60 PUFF/8 GM INHALER INHALATION SCH ×3 (11:11→21:35)
[2017-06-18] MEDS: SYMBICORT 160-4.5 MCG INHALER INHALATION SCH ×2 (11:12→21:35)
[2017-06-18] MEDS: CALCIUM CARB-VIT D 500MG-200UN 1 EACH TAB PO SCH (13:05)
[2017-06-18] MEDS: QUEtiapine 100 MG TAB PO SCH (21:47)
[2017-06-19] MEDS: ALBUTEROL INHALER 60 PUFF/8 GM INHALER INHALATION SCH ×3 (09:05→20:46)
[2017-06-19] MEDS: SYMBICORT 160-4.5 MCG INHALER INHALATION SCH ×2 (09:06→20:46)
[2017-06-19] MEDS: TIOTROPIUM 18 MCG/PUFF INHALER INHALATION SCH (09:06)
[2017-06-19] MEDS: CEFDINIR 300 MG CAP PO SCH ×2 (09:10→21:38)
[2017-06-19] MEDS: LISINOPRIL-HCTZ 10-12.5 MG 1 EACH TAB PO SCH (09:10)
[2017-06-19] MEDS: DIVALPROEX ER 500 MG TAB.ER.24H PO SCH (09:11)
--- NOTE | 2017-06-19 10:16 | P.PN ---
Progress Note - Text Progress Note Date: 06/19/17 Patient usually stays in her bed with oxygen on. She does not socialize or interact with other patients or staff. She does not attend groups. She said she slept well last night. She refuses to provide good information and does not speak much. She takes her medications and eats her meals. She still has some fine hand tremors. This is a white ambulatory female with adequate hygiene. She does not show any psychomotor agitation or retardation. Her speech is unspontaneous very short and often shakes or nods her head in response to questions. She denies suicidal and homicidal ideas. She appears to be oriented with adequate cognitive functions. Plan: Continue Seroquel 100 mg at bedtime and groups. She cannot be discharged until she signs a waiver or has a court hearing.
[2017-06-19] MEDS: CALCIUM CARB-VIT D 500MG-200UN 1 EACH TAB PO SCH (12:55)
[2017-06-19 17:48] LABS: Hemoglobin A1C 4.4 % (4.0-6.0)
[2017-06-19] MEDS: QUEtiapine 100 MG TAB PO SCH (21:39)
[2017-06-20] MEDS: TIOTROPIUM 18 MCG/PUFF INHALER INHALATION SCH (09:02)
[2017-06-20] MEDS: ALBUTEROL INHALER 60 PUFF/8 GM INHALER INHALATION SCH ×3 (09:02→21:13)
[2017-06-20] MEDS: SYMBICORT 160-4.5 MCG INHALER INHALATION SCH ×2 (09:02→21:13)
[2017-06-20] MEDS: CEFDINIR 300 MG CAP PO SCH ×2 (09:32→21:22)
[2017-06-20] MEDS: DIVALPROEX ER 500 MG TAB.ER.24H PO SCH (09:34)
[2017-06-20] MEDS: LISINOPRIL-HCTZ 10-12.5 MG 1 EACH TAB PO SCH (09:34)
[2017-06-20] MEDS: CALCIUM CARB-VIT D 500MG-200UN 1 EACH TAB PO SCH (13:20)
[2017-06-20] MEDS: QUEtiapine 100 MG TAB PO SCH (21:22)
--- NOTE | 2017-06-21 00:32 | P.PN ---
Progress Note - Text Progress Note Date: 06/21/17 Patient was seen today. She stays isolated most of the time and does not participate in unit activities. She reports good sleep and appetite. She denies symptom s of psychosis, marco and depression. She reports being compliant with her medications. Mental status exam This is a 67 year old woman. She appears in fair grooming and hygeine. She does not show any psychomotor agitation or retardation. Her speech is limited She denies suicidal and homicidal ideas. She is alert and oriented to time place and person. Plan: Continue Seroquel 100 mg at bedtime. Monitor for symptoms
[2017-06-21 04:47] LABS: Appearance,Urine Clear (Clear); Bilirubin,Urine Negative (Negative); Blood,Urine Negative (Negative); Color,Urine Yellow; Glucose,Urine (UA) Negative (Negative); Ketones,Urine Negative (Negative); Leukocyte Esterase,Urine Negative (Negative); Nitrite,Urine Negative (Negative); PH, Urine 6.5 (5.0-8.0); Protein,Urine Trace (Negative); Specific Gravity,Urine 1.013 (1.001-1.035); Urobilinogen,Urine <2.0 mg/dL (<2.0)
[2017-06-21] MEDS: ALBUTEROL INHALER 60 PUFF/8 GM INHALER INHALATION SCH ×3 (08:54→21:26)
[2017-06-21] MEDS: TIOTROPIUM 18 MCG/PUFF INHALER INHALATION SCH (08:54)
[2017-06-21] MEDS: SYMBICORT 160-4.5 MCG INHALER INHALATION SCH ×2 (08:54→21:26)
[2017-06-21] MEDS: CEFDINIR 300 MG CAP PO SCH ×2 (09:51→22:40)
[2017-06-21] MEDS: LISINOPRIL-HCTZ 10-12.5 MG 1 EACH TAB PO SCH (09:51)
[2017-06-21] MEDS: DIVALPROEX ER 500 MG TAB.ER.24H PO SCH (09:51)
[2017-06-21 11:35] LABS: Urine Alcohol Negative (Negative); Urine Barbiturate Negative (Negative); Urine Cocaine Negative (Negative); Urine Methadone Negative (Negative); Urine Opiates Negative (Negative); Urine Phencyclidine Negative (Negative)
--- NOTE | 2017-06-21 12:03 | P.PN ---
Progress Note - Text Progress Note Date: 06/21/17 Patient was seen today. She reports doing well. She reports good sleep and appetite. She reports to have showered yesterday. She stays she doesnt like going to groups. When asked if she stays in her most of the time, she states she is active. She denies feeling sad, hopeless or tearful. She denies anger, agitation or irrtability. She denies auditory or visual halluciantions. She denies paranoia. She reports being complaint with her medications. She is selective in answering the questions. She stays quiet if she does not want to answer a question. Mental status exam Patient is 67 year old woman. She has marginal grooming and hygine. She maintains poor eye contact. No psychomotor agitation or retardation noted. Her speech and thought process are limited. Her mood is reported as good and affect flat She denies adutory or visual hallucinations. She denies paranoia, but she is gaurded. She denies suicidal or homicidal ideations. She is alert and oriented to time place and person. Plan: Continue Seroquel 100 mg at bedtime Encourage going to groups She cannot be discharged until she signs a waiver or has a court hearing.
[2017-06-21] MEDS: CALCIUM CARB-VIT D 500MG-200UN 1 EACH TAB PO SCH (13:26)
[2017-06-21] MEDS: QUEtiapine 100 MG TAB PO SCH (22:40)
[2017-06-22] MEDS: SYMBICORT 160-4.5 MCG INHALER INHALATION SCH ×2 (09:12→21:35)
[2017-06-22] MEDS: TIOTROPIUM 18 MCG/PUFF INHALER INHALATION SCH (09:12)
[2017-06-22] MEDS: ALBUTEROL INHALER 60 PUFF/8 GM INHALER INHALATION SCH ×3 (09:13→21:35)
[2017-06-22] MEDS: DIVALPROEX ER 500 MG TAB.ER.24H PO SCH (10:31)
[2017-06-22] MEDS: CEFDINIR 300 MG CAP PO SCH ×3 (10:31→22:21)
[2017-06-22] MEDS: LISINOPRIL-HCTZ 10-12.5 MG 1 EACH TAB PO SCH (10:35)
--- NOTE | 2017-06-22 11:51 | P.PN ---
Progress Note - Text Progress Note Date: 06/22/17 Patient was seen for routine follow-up examination. She was seen in her room lying down in her bed. She does not have any complaint. She said she is doing okay, does not hear voices, does not have any thoughts of hurting herself or others. She does not attend groups. She was encouraged to attend groups. She is waiting for court hearing. This is a white ambulatory female on continuous oxygen. She does not show any psychomotor agitation or retardation. Her speech is fairly spontaneous and very short. Her mood is dull and affect is somewhat constricted in range. She denies suicide and homicide thoughts. She also denies hallucinations and delusional thinking. She has been taking her medications and eating her meals. She is fairly well oriented with adequate memory concentration etc. Plan: Continue Seroquel Depakote groups and other therapy. Waiting for court hearing.
[2017-06-22] MEDS: CALCIUM CARB-VIT D 500MG-200UN 1 EACH TAB PO SCH (13:07)
[2017-06-22] MEDS: ACETAMINOPHEN TAB 325 MG TAB PO PRN (16:40)
[2017-06-22] MEDS: LORazepam 1 MG TAB PO PRN (22:09)
[2017-06-22] MEDS: QUEtiapine 100 MG TAB PO SCH ×2 (22:09→22:21)
[2017-06-22] MEDS: LORazepam 2 MG/ML INJ IM PRN (22:20)
[2017-06-23] MEDS: TIOTROPIUM 18 MCG/PUFF INHALER INHALATION SCH (09:17)
[2017-06-23] MEDS: SYMBICORT 160-4.5 MCG INHALER INHALATION SCH ×2 (09:18→19:06)
[2017-06-23] MEDS: ALBUTEROL INHALER 60 PUFF/8 GM INHALER INHALATION SCH ×3 (09:18→19:06)
[2017-06-23] MEDS: DIVALPROEX ER 500 MG TAB.ER.24H PO SCH (09:48)
[2017-06-23] MEDS: CALCIUM CARB-VIT D 500MG-200UN 1 EACH TAB PO SCH (09:48)
[2017-06-23] MEDS: LISINOPRIL-HCTZ 10-12.5 MG 1 EACH TAB PO SCH (09:48)
[2017-06-23] MEDS: CEFDINIR 300 MG CAP PO SCH ×2 (09:48→20:43)
--- NOTE | 2017-06-23 10:57 | P.PN ---
Progress Note - Text Progress Note Date: 06/23/17 Patient was seen for a follow-up examination. She takes her medications, stays by herself, does not attend groups and does not socialize with patients or staff. She does not have any particular complaint. This is a white ambulatory female with adequate hygiene. She is polite and cooperative. She does not show any psychomotor agitation or retardation. Her speech is spontaneous relevant and goal-directed. Her mood is euthymic and affect is appropriate. She denies suicide and homicide thoughts. She eats her meals and takes her medication without any complaints of paranoia or delusional thinking. Her sensorium is clear. Plan: Continue Depakote Seroquel groups and other plans. Wait for the court hearing to discharge her.
[2017-06-23] MEDS: QUEtiapine 100 MG TAB PO SCH (20:43)
[2017-06-24] MEDS: ALBUTEROL INHALER 60 PUFF/8 GM INHALER INHALATION SCH ×3 (09:00→20:37)
[2017-06-24] MEDS: SYMBICORT 160-4.5 MCG INHALER INHALATION SCH ×2 (09:01→20:38)
[2017-06-24] MEDS: DIVALPROEX ER 500 MG TAB.ER.24H PO SCH ×2 (09:33→10:34)
[2017-06-24] MEDS: LISINOPRIL-HCTZ 10-12.5 MG 1 EACH TAB PO SCH ×2 (09:33→10:21)
[2017-06-24] MEDS: CEFDINIR 300 MG CAP PO SCH ×3 (09:33→21:54)
--- NOTE | 2017-06-24 10:44 | P.PN ---
Progress Note - Text Progress Note Date: 06/24/17 Patient was seen in her room. She is on continuous oxygen. She does not attend groups, does not socialize and stays by herself. Last night she had to get a when necessary Ativan since she got agitated, was accusing staff of stealing her $97 etc. Patient does not speak much and usually not so her head or shakes her head and sometimes says yes or no. This is a white ambulatory female with uncombed hair and looks somewhat unkempt. She does not show any psychomotor agitation or retardation. Her mood is dull to somewhat angry and affect is rather constricted in range. She denies suicide thoughts hallucinations. Even though she accused staff members of stealing her money she does not show any other clinical signs of psychosis/ paranoia. Plan: Increase her Seroquel 250 mg at bedtime. Continue groups and other plans.
[2017-06-24] MEDS: TIOTROPIUM 18 MCG/PUFF INHALER INHALATION SCH (12:15)
[2017-06-24] MEDS: CALCIUM CARB-VIT D 500MG-200UN 1 EACH TAB PO SCH (12:41)
[2017-06-24] MEDS: QUEtiapine 50 MG TAB PO SCH (21:51)
[2017-06-25] MEDS: QUEtiapine 50 MG TAB PO SCH ×2 (05:47→20:51)
[2017-06-25] MEDS: CEFDINIR 300 MG CAP PO SCH ×4 (05:47→20:51)
[2017-06-25] MEDS: SYMBICORT 160-4.5 MCG INHALER INHALATION SCH ×2 (08:44→19:21)
[2017-06-25] MEDS: TIOTROPIUM 18 MCG/PUFF INHALER INHALATION SCH (08:44)
[2017-06-25] MEDS: ALBUTEROL INHALER 60 PUFF/8 GM INHALER INHALATION SCH ×3 (08:44→19:21)
[2017-06-25] MEDS: CALCIUM CARB-VIT D 500MG-200UN 1 EACH TAB PO SCH ×2 (09:05→13:32)
[2017-06-25] MEDS: DIVALPROEX ER 500 MG TAB.ER.24H PO SCH ×2 (09:06→10:51)
[2017-06-25] MEDS: LISINOPRIL-HCTZ 10-12.5 MG 1 EACH TAB PO SCH ×2 (09:06→10:51)
--- NOTE | 2017-06-25 11:43 | P.PN ---
Progress Note - Text Progress Note Date: 06/25/17 Patient was seen for a follow-up examination in her room. She is laying down in her room without oxygen today. She had refused her lab works this morning, her medications last night and also refused her meals. But she had only liquids. She was encouraged to take her medications and eat her meals. This is a white ambulatory female with adequate hygiene. She is not very cooperative. She does not show any psychomotor agitation or retardation. Her speech is short soft and fairly goal-directed. Her mood is somewhat irritable and affect is rather increased in intensity. She denies suicidal and homicidal thoughts. She also denies hallucinations. She is refusing lab work stating that she does not want to get her blood poisoned. Her insight and judgment are grossly impaired. She is fairly well oriented with adequate memory concentration etc. Plan: Encouraged her to take medications, to eat, to attend groups and to have lab work.
[2017-06-25] MEDS: ACETAMINOPHEN TAB 325 MG TAB PO PRN (17:14)
[2017-06-26] MEDS: SYMBICORT 160-4.5 MCG INHALER INHALATION SCH ×2 (09:19→21:40)
[2017-06-26] MEDS: TIOTROPIUM 18 MCG/PUFF INHALER INHALATION SCH (09:19)
[2017-06-26] MEDS: ALBUTEROL INHALER 60 PUFF/8 GM INHALER INHALATION SCH ×3 (09:19→21:40)
[2017-06-26] MEDS: LISINOPRIL-HCTZ 10-12.5 MG 1 EACH TAB PO SCH ×2 (09:54→10:01)
[2017-06-26] MEDS: CEFDINIR 300 MG CAP PO SCH ×2 (09:54→10:02)
[2017-06-26] MEDS: DIVALPROEX ER 500 MG TAB.ER.24H PO SCH ×2 (09:55→10:01)
[2017-06-26] MEDS: CALCIUM CARB-VIT D 500MG-200UN 1 EACH TAB PO SCH (11:36)
--- NOTE | 2017-06-26 11:44 | P.PN ---
Progress Note - Text Progress Note Date: 06/26/17 Patient was seen in her room. She is not using her continuous oxygen. She has been refusing to take any and all of her medications. Her blood pressure has been going up and she is started on clonidine patch. Patient does not attend groups or socialize. But she has been eating fairly well. This is a white ambulatory female who does not speak much. She either says yes or no or nods or shakes her head and she is asked questions. Her mood is fairly euthymic and affect seems to be appropriate to the thought content. She denies hallucinations but appears to be paranoid. She denies suicide and homicide thoughts. Her cognitive functions appear to be intact. Plan: Change her antihypertensive to clonidine patch. Encourage her to attend groups and take medications.
[2017-06-26] MEDS: LORazepam 2 MG/ML INJ IM PRN (12:10)
[2017-06-26] MEDS: cloNIDine 0.1 MG/24HR PATCH 1 PATCH PATCH TRANSDERM SCH (14:55)
[2017-06-26] MEDS: QUEtiapine 50 MG TAB PO SCH (21:54)
[2017-06-27] MEDS: DIVALPROEX ER 500 MG TAB.ER.24H PO SCH (09:05)
[2017-06-27] MEDS: LISINOPRIL-HCTZ 10-12.5 MG 1 EACH TAB PO SCH ×2 (09:06→09:15)
[2017-06-27] MEDS: LORazepam 1 MG TAB PO PRN (09:06)
[2017-06-27] MEDS: ALBUTEROL INHALER 60 PUFF/8 GM INHALER INHALATION SCH ×3 (09:18→19:54)
[2017-06-27] MEDS: SYMBICORT 160-4.5 MCG INHALER INHALATION SCH ×2 (09:18→19:54)
[2017-06-27] MEDS: TIOTROPIUM 18 MCG/PUFF INHALER INHALATION SCH (09:18)
--- NOTE | 2017-06-27 11:30 | P.PN ---
Progress Note - Text Progress Note Date: 06/27/17 Interval History: Patient is a 65-year-old female who was seen in her room. Patient states that she slept well last evening and did eat her breakfast this morning. Patient reports that she is not having any headaches and is not feeling dizzy. Patient denied having any other complaints at this time. Mental Status: Appearance/Attitude: Patient was seen in her room where she is lying in bed dressed in a hospital gown, she made eye contact and was cooperative. Behavior: Patient did not exhibit any psychomotor agitation or retardation. Speech/Language: Patient spoke in a soft voice in brief sentences and was coherent Thought Process: Patient responded to questions with yes no answers are very brief sentences or is no evidence of loose association or flight of ideas Thought Content: Patient denied any auditory or visual hallucinations, denied paranoid or delusional ideation, none was elicited. Patient did eat her breakfast this morning and she did take her medication last evening and this morning. Patient reports that she slept well. Suicidal/Homicidal Ideation: Patient denied any current suicidal or homicidal ideation Sensorium/Cognition: Patient is alert, oriented to person and location further testing was not performed Mood/Affect: Patient's mood is blunted as is her affect Insight/Judgment: Patient's insight and judgment are impaired. Assessment: Patient apparently slept last evening in the bathroom when on the toilet and hit her head however she has not had any complaints of headaches and reports no difficulties this morning. Patient did take her Seroquel last evening and her Depakote this morning. Patient did eat her breakfast this morning. Patient has kept a clonidine patch on. Patient has continued to remain in her room in bed, she did not have oxygen on when I saw her stating that she did not need it. Plan: Patient will continue on her current medications, she is encouraged to continue to take her medications, encouraged to continue to eat. Patient's Zestoretic was discontinued as the patient is wearing a clonidine patch and her blood was 133/63 this morning. Her blood pressures will continue to be monitored while she is on the clonidine patch to see if it continues sufficiently controls her blood pressure. Patient continues to require hospitalization to further stabilize.
[2017-06-27] MEDS: CALCIUM CARB-VIT D 500MG-200UN 1 EACH TAB PO SCH (14:23)
[2017-06-27] MEDS: QUEtiapine 50 MG TAB PO SCH (20:18)
[2017-06-27] MEDS: LORazepam 2 MG/ML INJ IM PRN (20:21)
[2017-06-28] MEDS: ALBUTEROL INHALER 60 PUFF/8 GM INHALER INHALATION SCH ×3 (09:15→22:02)
[2017-06-28] MEDS: SYMBICORT 160-4.5 MCG INHALER INHALATION SCH ×2 (09:15→22:02)
[2017-06-28] MEDS: TIOTROPIUM 18 MCG/PUFF INHALER INHALATION SCH (09:16)
[2017-06-28] MEDS: DIVALPROEX ER 500 MG TAB.ER.24H PO SCH ×2 (09:18→12:54)
[2017-06-28] MEDS: CALCIUM CARB-VIT D 500MG-200UN 1 EACH TAB PO SCH (12:48)
--- NOTE | 2017-06-28 13:05 | P.PN ---
Progress Note - Text Progress Note Date: 06/28/17 Interval History: Patient is a 67-year-old female who was seen today in her room. Patient was lying on her side and did not open her eyes after I called her by name she told me that her name was Abdi Kimbrough. Patient stated that she was not Rani. She stated that she does not need to eat. Patient stated that she did not take her Seroquel last night because she does not need the medicine and has never taken it. Patient at that time rolled on her side and pulled the covers up over her face and refused to continue speaking with me. Mental Status: Appearance/Attitude: Patient is in a hospital gown lying in her bed, pulled the covers up over her head during the interview, made intermittent eye contact was superficially cooperative Behavior: Patient did not display any psychomotor agitation or retardation but was irritable Speech/Language: Patient responded to questions with brief answers, and she was coherent. Thought Process: Patient's answers to questions were brief, no evidence of loose association or flight of ideas. Thought Content: Patient refused to answer questions stating that she was not Rani and that her name was Angel, that she did not need to eat and that she was not going to take Seroquel and never has. Suicidal/Homicidal Ideation: Patient refused to answer Sensorium/Cognition: Patient was alert and oriented to location stated that her name was not Rani. Mood/Affect: Patient's mood was irritable and her affect appropriate to her mood Insight/Judgment: Patient's insight and judgment are impaired. Assessment: Patient today was seen in her room where she refused to eat stating that she does not need to eat food. Patient stated that she did not take her Seroquel last night because she is not going to and never has. Patient told me that her name was not Rani but another name. She refused to continue the conversation with me pulling the covers over her head and not responding. Patient refused her Seroquel last evening but did take her Depakote and she did not eat today and has not been attending groups or activities. Plan: Patient continues on her current medications, she is encouraged to eat, get up out of bed and attend groups and activities. Patient continues to require hospitalization.
[2017-06-28] MEDS: QUEtiapine 50 MG TAB PO SCH (20:28)
[2017-06-29] MEDS: TIOTROPIUM 18 MCG/PUFF INHALER INHALATION SCH (08:58)
[2017-06-29] MEDS: ALBUTEROL INHALER 60 PUFF/8 GM INHALER INHALATION SCH ×3 (08:58→21:17)
[2017-06-29] MEDS: SYMBICORT 160-4.5 MCG INHALER INHALATION SCH ×2 (08:58→21:17)
[2017-06-29] MEDS: DIVALPROEX ER 500 MG TAB.ER.24H PO SCH (09:40)
--- NOTE | 2017-06-29 11:49 | P.PN ---
Progress Note - Text Progress Note Date: 06/29/17 Patient was seen in her room. She has cowered herself with a blanket and refuses to move or talk both at this time and early in the morning. She has been taking some of her medications quite erratically. She goes to meals at times and not at other times. She is not using her continuous oxygen. She has not been violent or combative. She is not showering regularly. This is a white ambulatory female with fair hygiene. She does not show any psychomotor agitation or retardation. She refuses to speak and provided information. But she does not show any bizarre behavior during examination. Other aspects of mental status could not be assessed because of her uncooperativeness. Plan: Continue Depakote and Seroquel which she has been refusing so far. Once she goes to court on the and if she is committed I will start her on IM medications if she continues to refuse by mouth medications. Encourage her to attend groups.
[2017-06-29] MEDS: CALCIUM CARB-VIT D 500MG-200UN 1 EACH TAB PO SCH (12:51)
[2017-06-29] MEDS: QUEtiapine 50 MG TAB PO SCH (21:58)
[2017-06-30] MEDS: DIVALPROEX ER 500 MG TAB.ER.24H PO SCH (09:05)
--- NOTE | 2017-06-30 09:06 | P.PN ---
Progress Note - Text Progress Note Date: 06/30/17 Patient was seen for routine follow-up examination. She did not go for breakfast today. She is not using her oxygen. She is not taking her medications saying that she does not believe in May or the medicines. Counseling is in effective. She usually stays by herself in her room. She does not socialize with peers or interacted with staff members. She does not attend groups. This is a white ambulatory female with fair hygiene. She is uncooperative. She is irritable. Her speech is soft short and goal directed she refuses to answer questions regarding hallucinations delusional thinking suicidal and homicidal ideas. She simply says she doesn't want to talk about it. But she has not engaged in any suicidal or violent behavior. Plan: Continue groups and continue to offer her medications. Give her IM medications if she is committed by the justice court judge tomorrow.
[2017-06-30] MEDS: TIOTROPIUM 18 MCG/PUFF INHALER INHALATION SCH (09:27)
[2017-06-30] MEDS: ALBUTEROL INHALER 60 PUFF/8 GM INHALER INHALATION SCH ×3 (09:27→20:08)
[2017-06-30] MEDS: SYMBICORT 160-4.5 MCG INHALER INHALATION SCH ×2 (09:27→20:08)
[2017-06-30] MEDS: CALCIUM CARB-VIT D 500MG-200UN 1 EACH TAB PO SCH (11:35)
[2017-06-30] MEDS: QUEtiapine 50 MG TAB PO SCH (22:01)
[2017-07-01] MEDS: DIVALPROEX ER 500 MG TAB.ER.24H PO SCH (08:38)
--- NOTE | 2017-07-01 10:06 | P.PN ---
Progress Note - Text Progress Note Date: 07/01/17 Patient was seen in her room. She refused to talk today. She only not date or shook her head when I asked her questions. She does not have any complaint and said she is doing okay. She continues to refuse her medications. She does not socialize with others and does not attend groups and only stays in her bed. This is a white ambulatory female with adequate hygiene. She does not show any psychomotor agitation or retardation. She is uncooperative. She denies suicide and homicide thoughts. She denies hallucinations. But she is paranoid and does not trust others. Her sensorium appears to be intact. Plan: If the project architect commits her this afternoon and will start her on Haldol by mouth or IM if she does not take it and will start on Haldol D if she does not have any adverse effect from Haldol by mouth.
[2017-07-01] MEDS: ALBUTEROL INHALER 60 PUFF/8 GM INHALER INHALATION SCH ×3 (12:26→22:23)
[2017-07-01] MEDS: SYMBICORT 160-4.5 MCG INHALER INHALATION SCH ×2 (12:26→22:23)
[2017-07-01] MEDS: TIOTROPIUM 18 MCG/PUFF INHALER INHALATION SCH (12:26)
[2017-07-01] MEDS: CALCIUM CARB-VIT D 500MG-200UN 1 EACH TAB PO SCH (13:08)
[2017-07-01] MEDS ORDERED: HALOPERIDOL LACTATE 5 MG/ML 1 ML VIAL IM PRN (14:23)
[2017-07-01] MEDS: HALOPERIDOL LACTATE 5 MG/ML 1 ML VIAL IM PRN (21:14)
[2017-07-01] MEDS: HALOPERIDOL 5 MG TAB PO SCH (22:18)
[2017-07-01] MEDS: cloNIDine 0.1 MG/24HR PATCH 1 PATCH PATCH TRANSDERM SCH ×2 (22:44→23:20)
[2017-07-02] MEDS: DIVALPROEX ER 500 MG TAB.ER.24H PO SCH (09:12)
[2017-07-02] MEDS: HALOPERIDOL 5 MG TAB PO SCH ×2 (09:12→21:23)
[2017-07-02] MEDS: HALOPERIDOL LACTATE 5 MG/ML 1 ML VIAL IM PRN (09:20)
[2017-07-02] MEDS: SYMBICORT 160-4.5 MCG INHALER INHALATION SCH ×2 (09:33→21:07)
[2017-07-02] MEDS: ALBUTEROL INHALER 60 PUFF/8 GM INHALER INHALATION SCH ×3 (09:33→21:07)
[2017-07-02] MEDS: TIOTROPIUM 18 MCG/PUFF INHALER INHALATION SCH (09:33)
--- NOTE | 2017-07-02 09:53 | P.PN ---
Progress Note - Text Progress Note Date: 07/02/17 Patient was seen in her room. When I went to her room she turned her face towards me and closed her eyes and stopped responding to me totally. She refused to answer even a single question. Her breakfast was still on the tray table untouched. She refused her by mouth Haldol and received IM Haldol this morning. She continues to stay by herself, and does not socialize, and does not use her oxygen and her oxygen saturation is low. She does not attend the groups and is very uncooperative. This is a white ambulatory female who refuses to talk or even respond to questions. She kept her eyes closed. A complete evaluation could not be done because of her uncooperativeness. However she has not engaged in any behavior that is danger to self or others. Plan: continue Haldol by mouth or IM and if she does not have any adverse effects start her on Haldol D on Thursday the July 06.
[2017-07-02] MEDS: CALCIUM CARB-VIT D 500MG-200UN 1 EACH TAB PO SCH (11:52)
[2017-07-03] MEDS: ALBUTEROL INHALER 60 PUFF/8 GM INHALER INHALATION SCH ×2 (09:23→21:06)
[2017-07-03] MEDS: TIOTROPIUM 18 MCG/PUFF INHALER INHALATION SCH (09:23)
[2017-07-03] MEDS: SYMBICORT 160-4.5 MCG INHALER INHALATION SCH ×2 (09:23→21:06)
--- NOTE | 2017-07-03 09:41 | P.PN ---
Progress Note - Text Progress Note Date: 07/03/17 Patient refused to talk with me and turned to the other side when I tried to talk to her. She refused even to nod or shake her head when I asked her for information. She had only one Haldol dose yesterday morning and it is not clear why she did not get the before evening, yesterday evening or this morning. Patient continues to stay by herself, does not socialize, refuses to take her other medications also. Continues to make some paranoid statements when she does. But she has not been violent or combative. So far she is not showing any adverse effect from her 1 dose of Haldol. Plan: Continue Haldol by mouth and start on Haldol D if she does not have any adverse effects. Encourage her to attend groups.
[2017-07-03] MEDS: HALOPERIDOL LACTATE 5 MG/ML 1 ML VIAL IM PRN ×2 (09:48→22:22)
[2017-07-03] MEDS: DIVALPROEX ER 500 MG TAB.ER.24H PO SCH (09:54)
[2017-07-03] MEDS: HALOPERIDOL 5 MG TAB PO SCH ×3 (09:54→22:30)
[2017-07-03] MEDS: CALCIUM CARB-VIT D 500MG-200UN 1 EACH TAB PO SCH (13:59)
[2017-07-04] MEDS: SYMBICORT 160-4.5 MCG INHALER INHALATION SCH ×2 (08:20→20:19)
[2017-07-04] MEDS: ALBUTEROL INHALER 60 PUFF/8 GM INHALER INHALATION SCH ×3 (08:20→20:19)
[2017-07-04] MEDS: TIOTROPIUM 18 MCG/PUFF INHALER INHALATION SCH (08:21)
[2017-07-04] MEDS: DIVALPROEX ER 500 MG TAB.ER.24H PO SCH (09:39)
[2017-07-04] MEDS: HALOPERIDOL LACTATE 5 MG/ML 1 ML VIAL IM PRN (09:39)
[2017-07-04] MEDS: CALCIUM CARB-VIT D 500MG-200UN 1 EACH TAB PO SCH (12:55)
--- NOTE | 2017-07-04 14:16 | P.PN ---
Progress Note - Text Interval history: The patient is found in her room lying in bed. Initially she is in a supine position with her eyes open however upon my approach she rolls to her left side and closes her eyes. She provides head nods or head shakes as part of answers for a brief number of questions. She verbalizes no responses. She indicates that she has not been going to group she indicates having no questions regarding her medication. It appears that she has demonstrated similar behavior at least yesterday. Psychotropic medications reviewed. Mental status exam: The patient is a female well known to this service. She is lying in bed choosing not to verbally respond to questions asked. She is noted to have some shaking behavior of her lower extremity as she is lying in bed. Insight and judgment are impaired given her lack of response during the interview. She demonstrates no verbal or physical aggressiveness. She answers no questions regarding safety or psychosis. Plan: The patient will continue on her current prescribed medications we'll monitor for any abnormal involuntary movements. Although encouraged, she indicates she will not attend groups. We will monitor by mouth intake.
[2017-07-04] MEDS: HALOPERIDOL 5 MG TAB PO SCH (21:18)
[2017-07-05] MEDS: ALBUTEROL INHALER 60 PUFF/8 GM INHALER INHALATION SCH ×3 (08:16→20:28)
[2017-07-05] MEDS: SYMBICORT 160-4.5 MCG INHALER INHALATION SCH ×2 (08:16→20:28)
[2017-07-05] MEDS: TIOTROPIUM 18 MCG/PUFF INHALER INHALATION SCH ×2 (08:16→13:29)
[2017-07-05] MEDS: HALOPERIDOL 5 MG TAB PO SCH ×3 (09:55→20:57)
[2017-07-05] MEDS: HALOPERIDOL LACTATE 5 MG/ML 1 ML VIAL IM PRN ×2 (09:55→20:58)
[2017-07-05] MEDS: DIVALPROEX ER 500 MG TAB.ER.24H PO SCH (09:55)
--- NOTE | 2017-07-05 11:59 | P.PN ---
Progress Note - Text Interval history: The patient is found in her room lying supine in bed covered completely with a blanket. She is not cooperative with follow me to an interview room and would not remove the blanket exposing her face. She provided no verbal responses to questions asked. Staff reported the patient's did get up yesterday to eat she has also eaten in her room. Otherwise she has not been participating in the milieu. Mental status exam: The patient does not participate in the interview as described above. She is in no acute distress no abnormal involuntary movements observed. Staff continue to observe her by mouth intake. Insight and judgment impaired. She demonstrates no verbal or physical aggressiveness. Plan: The patient will continue her current psychotropic medications. We will continue to monitor her for safety. We will monitor by mouth intake and vital signs.
[2017-07-05] MEDS: CALCIUM CARB-VIT D 500MG-200UN 1 EACH TAB PO SCH (14:00)
[2017-07-06] MEDS: ALBUTEROL INHALER 60 PUFF/8 GM INHALER INHALATION SCH ×3 (09:19→19:31)
[2017-07-06] MEDS: SYMBICORT 160-4.5 MCG INHALER INHALATION SCH ×2 (09:19→19:31)
--- NOTE | 2017-07-06 09:31 | P.PN ---
Progress Note - Text Progress Note Date: 07/06/17 Patient refused to participate in the interview. He refused to respond to questions and did not nod or shake her head as a response to questions. She is laying down quietly in her bed. She does not attend groups, each her meals erratically and does not take her medications regularly. He got some Haldol IM on a few occasions and she took by mouth 1 time. She does not have any adverse effects from Haldol by mouth This is a white ambulatory female with fair hygiene. She is uncooperative and does not respect in the interview. She does not show any psychomotor agitation or retardation. Further evaluation could not be done because of her uncooperativeness. Plan: Continue Haldol by mouth and start her on Haldol D IM tomorrow or day after if she continues not to have adverse effects. Encourage her to attend groups, to eat her meals and to take her medications.
[2017-07-06] MEDS: HALOPERIDOL LACTATE 5 MG/ML 1 ML VIAL IM PRN ×2 (09:41→21:26)
[2017-07-06] MEDS: HALOPERIDOL 5 MG TAB PO SCH ×3 (09:47→21:11)
[2017-07-06] MEDS: DIVALPROEX ER 500 MG TAB.ER.24H PO SCH (09:47)
[2017-07-06] MEDS: CALCIUM CARB-VIT D 500MG-200UN 1 EACH TAB PO SCH (12:45)
[2017-07-06] MEDS: TIOTROPIUM 18 MCG/PUFF INHALER INHALATION SCH (13:08)
--- NOTE | 2017-07-06 20:53 | XR ---
EXAMINATION: XR chest 1V portable DATE AND TIME: 07/06/2017 8:30 PM ORDERING PROVIDER: Bunny Stoddard CLINICAL INDICATION: Pulse Ox 78%-83% TECHNIQUE: AP upright portable COMPARISON: May 22, 2016 DESCRIPTION: The hemidiaphragms are elevated, consistent with low lung inflation at the moment of x-r ay exposure. The lungs are clear as seen, and the pleural spaces are negative. *However, there is low attenuation underneath the right hemidiaphragm; this appears to represent inte rposed colon but this suspicion cannot be confirmed on this radiograph alone. That is, pneumoperitone um cannot be excluded. IMPRESSION: LIKELY INTERPOSED COLON UNDERNEATH THE RIGHT HEMIDIAPHRAGM, BUT RECOMMEND FOLLOW-UP UPRIGHT CHEST RAD IOGRAPH TO PROVE THIS SUSPICION.
[2017-07-07] MEDS: HALOPERIDOL 5 MG TAB PO SCH ×2 (09:56→22:20)
[2017-07-07] MEDS: DIVALPROEX ER 500 MG TAB.ER.24H PO SCH (09:56)
[2017-07-07] MEDS: HALOPERIDOL LACTATE 5 MG/ML 1 ML VIAL IM PRN ×2 (10:07→21:44)
[2017-07-07] MEDS: ALBUTEROL INHALER 60 PUFF/8 GM INHALER INHALATION SCH ×3 (10:28→20:36)
[2017-07-07] MEDS: SYMBICORT 160-4.5 MCG INHALER INHALATION SCH ×2 (10:28→11:00)
[2017-07-07] MEDS: TIOTROPIUM 18 MCG/PUFF INHALER INHALATION SCH (11:00)
--- NOTE | 2017-07-07 12:29 | P.PN ---
Progress Note - Text Progress Note Date: 07/07/17 Patient was seen for routine follow-up examination. She continues to refuse to respond to questions. She does not show any psychomotor agitation or retardation. She continues to refuse by mouth medications and has been getting Haldol IM. Does not have any adverse effects from Haldol. She does not attend groups and is very selective about eating her meals. Counseling has been ineffective. She has not been showing any bizarre violent or self-destructive behavior. Plan: Start on Haldol D 150 mg IM every month. Continue by mouth Haldol, groups and other therapies.
[2017-07-07] MEDS ORDERED: HALOPERIDOL DECANOATE 100 MG/ML 1 ML VIAL IM SCH (13:00)
[2017-07-07] MEDS: CALCIUM CARB-VIT D 500MG-200UN 1 EACH TAB PO SCH (13:17)
[2017-07-07] MEDS ORDERED: HALOPERIDOL DECANOATE 100 MG/ML 1 ML VIAL IM ONE (14:00)
[2017-07-07 15:23] VITALS: BMI 21.1
--- NOTE | 2017-07-08 08:22 | P.PN ---
Progress Note - Text Progress Note Date: 07/08/17 Patient was seen for follow-up examination in her room. She is still uncooperative and refuses to participate in the interview. She just nodded and shook her head on 2 or 3 occasions for questions. She said by nodding her head that she is doing all right by shaking her head she does not have any questions to ask and about her breakfast. Following this she closed her eyes and refuses to respond to any questions. She has not been taking her medications or using oxygen regularly. Her pO2 is low and her blood pressure is little high. Otherwise she has not been agitated and hostile threatening etc. her Haldol D was ordered yesterday but apparently according to the hospital/pharmacy protocol this patient cannot get all her 150 mg in 1 dose and it is being split on 2 doses, 5-7 days apart. This is rather an unusual protocol I have never heard of before. Plan: Continue Haldol by mouth or IM, encouraged her to take medications, use oxygen, eat her meals, attend groups and participate in other activities.
[2017-07-08] MEDS: HALOPERIDOL 5 MG TAB PO SCH ×2 (09:13→20:21)
[2017-07-08] MEDS: DIVALPROEX ER 500 MG TAB.ER.24H PO SCH (09:16)
[2017-07-08] MEDS: HALOPERIDOL LACTATE 5 MG/ML 1 ML VIAL IM PRN ×2 (09:18→20:44)
[2017-07-08] MEDS: CALCIUM CARB-VIT D 500MG-200UN 1 EACH TAB PO SCH (11:22)
[2017-07-08] MEDS: SYMBICORT 160-4.5 MCG INHALER INHALATION SCH ×2 (11:28→21:18)
[2017-07-08] MEDS: ALBUTEROL INHALER 60 PUFF/8 GM INHALER INHALATION SCH ×3 (11:28→21:18)
[2017-07-08] MEDS: cloNIDine 0.1 MG/24HR PATCH 1 PATCH PATCH TRANSDERM SCH (20:44)
[2017-07-08] MEDS: TIOTROPIUM 18 MCG/PUFF INHALER INHALATION SCH (21:18)
[2017-07-09] MEDS: ALBUTEROL INHALER 60 PUFF/8 GM INHALER INHALATION SCH ×3 (09:31→21:14)
[2017-07-09] MEDS: SYMBICORT 160-4.5 MCG INHALER INHALATION SCH ×2 (09:31→21:14)
[2017-07-09] MEDS: TIOTROPIUM 18 MCG/PUFF INHALER INHALATION SCH (09:32)
[2017-07-09] MEDS: HALOPERIDOL 5 MG TAB PO SCH ×2 (09:45→21:00)
[2017-07-09] MEDS: DIVALPROEX ER 500 MG TAB.ER.24H PO SCH (09:45)
[2017-07-09] MEDS: HALOPERIDOL LACTATE 5 MG/ML 1 ML VIAL IM PRN ×2 (09:48→21:48)
--- NOTE | 2017-07-09 11:52 | P.PN ---
Progress Note - Text Progress Note Date: 07/09/17 Patient was seen in her room for a follow-up examination. Today patient got up and sat down on her bed when we were talking. She said she would like to go home. When she was asked about her medications she said she does not need them and won't be taking any. She was advised that she is under a court order and has to take medications, and if she does not take them, she will be brought back to the hospital right away. She appeared to be ignoring this statement. Apparently she has started to get up go to the front end mechanic etc. She still doesn' t take her by mouth medications. This is a white ambulatory female with adequate hygiene. She does not show any psychomotor agitation or retardation. Her speech is spontaneous and goal- directed. Her mood is dull and affect is somewhat constricted in range. She refused to answer questions regarding hallucinations and delusional thinking. She however denies suicide and homicide thoughts. She is oriented with adequate memory concentration etc. Plan: Continue Haldol by mouth, groups and other activities.
[2017-07-09] MEDS: CALCIUM CARB-VIT D 500MG-200UN 1 EACH TAB PO SCH (12:37)
[2017-07-10] MEDS: LORazepam 1 MG TAB PO PRN (01:45)
[2017-07-10] MEDS: HALOPERIDOL 5 MG TAB PO SCH ×2 (09:12→21:27)
[2017-07-10] MEDS: HALOPERIDOL LACTATE 5 MG/ML 1 ML VIAL IM PRN ×2 (09:12→21:36)
[2017-07-10] MEDS: DIVALPROEX ER 500 MG TAB.ER.24H PO SCH (09:12)
--- NOTE | 2017-07-10 09:12 | P.PN ---
Progress Note - Text Progress Note Date: 07/10/17 Patient was seen in her room for follow-up examination. She had eaten most part of her breakfast this morning. She has not been taking any of her by mouth medications. She has been getting Haldol IM instead of by mouth. Her blood pressure is still high she is on clonidine transdermal patch. She continues to state that she lives by herself, is ready to go home and will not be taking any medications since she is not sick. She continues to take Ativan on a when necessary basis and asked me if it could be continued. She was counseled that we don't provide Ativan on a long-term basis. This is a white ambulatory female with fair hygiene. She does not show any psychomotor agitation or retardation. Her speech is spontaneous and goal- directed. Her mood is rather dull and affect is constricted in range. She denies suicide and homicide thoughts. She denies hallucinations. But she said she lives by herself is not planning on taking any medications. Her insight is still poor and judgment is impaired as evidenced by refusing to take medications , not attending groups etc. She is oriented to place person etc. Plan: Increase clonidine transdermal patch to 0.2 mg, continue Haldol by mouth or IM if she refuses by mouth. Encourage her to attend groups.
[2017-07-10] MEDS: ALBUTEROL INHALER 60 PUFF/8 GM INHALER INHALATION SCH ×3 (09:40→21:20)
[2017-07-10] MEDS: SYMBICORT 160-4.5 MCG INHALER INHALATION SCH ×2 (09:40→21:20)
[2017-07-10] MEDS: TIOTROPIUM 18 MCG/PUFF INHALER INHALATION SCH (09:40)
[2017-07-10] MEDS ORDERED: cloNIDine 0.2 MG/24HR PATCH 1 PATCH PATCH TRANSDERM SCH (10:00)
[2017-07-10] MEDS: CALCIUM CARB-VIT D 500MG-200UN 1 EACH TAB PO SCH (12:14)
[2017-07-10] MEDS ORDERED: HALOPERIDOL DECANOATE 100 MG/ML 1 ML VIAL IM ONE (14:00)
[2017-07-10] MEDS: hydrOXYzine PAMOATE 25 MG CAP PO PRN (22:21)
[2017-07-11] MEDS: DIVALPROEX ER 500 MG TAB.ER.24H PO SCH (09:10)
[2017-07-11] MEDS: HALOPERIDOL LACTATE 5 MG/ML 1 ML VIAL IM PRN (09:11)
[2017-07-11] MEDS: HALOPERIDOL 5 MG TAB PO SCH ×2 (09:11→20:14)
[2017-07-11] MEDS: ALBUTEROL INHALER 60 PUFF/8 GM INHALER INHALATION SCH ×3 (09:19→20:41)
[2017-07-11] MEDS: SYMBICORT 160-4.5 MCG INHALER INHALATION SCH ×2 (09:19→20:41)
[2017-07-11] MEDS: TIOTROPIUM 18 MCG/PUFF INHALER INHALATION SCH (09:20)
[2017-07-11] MEDS: CALCIUM CARB-VIT D 500MG-200UN 1 EACH TAB PO SCH (11:13)
--- NOTE | 2017-07-11 15:23 | P.PN ---
Progress Note - Text Progress Note Date: 07/11/17 Interval history: Patient is seen in cross coverage today. She is found in her room. She wishes not to come to the interview room and asks for me to talk to me in her room. She relates that her mood is doing okay. She does not seem to voice any adverse psychotropic medication side effects. Her answers are very brief. Mental status exam: She is alert, found in her room. Her answers are very brief. She does not show any agitation. Her affect is restricted. She describes her mood is doing okay. She denies any thoughts of harm to self or others. She denies any hallucinations. She denies any bothersome or paranoid thoughts. Plan: We'll maintain current psychotropic medication regimen. We'll monitor for any medication side effects. We'll continue to cover this patient through the weekend.
[2017-07-11] MEDS: hydrOXYzine PAMOATE 25 MG CAP PO PRN (21:59)
[2017-07-12] MEDS: SYMBICORT 160-4.5 MCG INHALER INHALATION SCH ×2 (08:44→21:45)
[2017-07-12] MEDS: ALBUTEROL INHALER 60 PUFF/8 GM INHALER INHALATION SCH ×3 (08:44→21:45)
[2017-07-12] MEDS: TIOTROPIUM 18 MCG/PUFF INHALER INHALATION SCH (08:45)
[2017-07-12] MEDS: HALOPERIDOL 5 MG TAB PO SCH ×2 (09:06→22:52)
[2017-07-12] MEDS: DIVALPROEX ER 500 MG TAB.ER.24H PO SCH (09:06)
[2017-07-12] MEDS: HALOPERIDOL LACTATE 5 MG/ML 1 ML VIAL IM PRN ×2 (09:09→21:15)
[2017-07-12] MEDS: CALCIUM CARB-VIT D 500MG-200UN 1 EACH TAB PO SCH (12:22)
--- NOTE | 2017-07-12 17:02 | P.PN ---
Progress Note - Text Progress Note Date: 07/12/17 Interval history: Patient seen in cross coverage again today. She is found in her room lying in bed. She reports that she only slept about 2 hours last night. Says she has been sleeping some today. She seems to be eating. She reports that she is taking the medications the nurses give to her. Mental status exam: She is alert and cooperative with the interview. Her speech is fluent, not rapid or pressured. Her answers are pretty brief. She describes her mood as "good." She denies any thoughts of harm to self or others. She denies any auditory hallucinations. She does not verbalize any delusional thoughts. Plan: We'll maintain current psychotropic medication regimen. Continue to monitor for any medication side effects and monitor her ongoing response to treatment.
[2017-07-13] MEDS: hydrOXYzine PAMOATE 25 MG CAP PO PRN ×2 (00:51→23:53)
[2017-07-13] MEDS: ALBUTEROL INHALER 60 PUFF/8 GM INHALER INHALATION SCH ×3 (08:14→20:38)
[2017-07-13] MEDS: TIOTROPIUM 18 MCG/PUFF INHALER INHALATION SCH (08:14)
[2017-07-13] MEDS: SYMBICORT 160-4.5 MCG INHALER INHALATION SCH ×2 (08:16→20:38)
--- NOTE | 2017-07-13 08:22 | P.PN ---
Progress Note - Text Progress Note Date: 07/13/17 Patient was seen in her room for a follow-up visit. Today she refused to speak at all. She is laying down quietly without any restlessness. She did open her eyes when I called her name. She continues not to take her medications and is getting IM Haldol. Her blood pressure is still high and is on clonidine patch, the dose was increased last Thursday the . He shouldn't does not go to the dining room to eat does not socialize but has been going to the front desk host to meet her needs periodically. Other aspects of mental status could not be completed because of her uncooperativeness. Plan: Continue current medications, encourage her to attend groups to interact with people take her medicines etc.
[2017-07-13] MEDS: HALOPERIDOL LACTATE 5 MG/ML 1 ML VIAL IM PRN ×2 (09:28→21:39)
[2017-07-13] MEDS: DIVALPROEX ER 500 MG TAB.ER.24H PO SCH (09:29)
[2017-07-13] MEDS: HALOPERIDOL 5 MG TAB PO SCH ×2 (09:30→21:39)
[2017-07-13] MEDS: CALCIUM CARB-VIT D 500MG-200UN 1 EACH TAB PO SCH (12:20)
[2017-07-13] MEDS: cloNIDine 0.2 MG/24HR PATCH 1 PATCH PATCH TRANSDERM SCH (13:37)
[2017-07-14] MEDS: TIOTROPIUM 18 MCG/PUFF INHALER INHALATION SCH (08:52)
[2017-07-14] MEDS: SYMBICORT 160-4.5 MCG INHALER INHALATION SCH ×2 (08:52→20:11)
[2017-07-14] MEDS: ALBUTEROL INHALER 60 PUFF/8 GM INHALER INHALATION SCH ×3 (08:52→20:11)
[2017-07-14] MEDS: DIVALPROEX ER 500 MG TAB.ER.24H PO SCH (08:56)
[2017-07-14] MEDS: HALOPERIDOL 5 MG TAB PO SCH ×3 (08:56→20:36)
--- NOTE | 2017-07-14 10:27 | P.PN ---
Progress Note - Text Progress Note Date: 07/14/17 Patient continues to refuse her by mouth medications. This morning she went to dining room for breakfast. She stays by herself and does not socialize. She continues to say that she will not take her medications when she gets home. She also insists that she lives by herself and not in a nursing home. This is a white ambulatory female with adequate hygiene. She does not show any psychomotor agitation or retardation. Today she spoke a little and her speech is spontaneous and goal-directed. Her mood is dull to euthymic and affect is rather constricted in range. She denies hallucinations. She believes we are trying to poison and kill her that is why we are giving her medications. She is not able to say what we will achieve by killing her. Counseling to the contrary is not effective. She refuses to answer questions regarding her cognitive functions. But she appears fairly in adequate contact with her environment. Plan: Continue Haldol by mouth twice a day, Haldol D IM every month, groups and other activities.
[2017-07-14] MEDS: CALCIUM CARB-VIT D 500MG-200UN 1 EACH TAB PO SCH (11:50)
[2017-07-14] MEDS: hydrOXYzine PAMOATE 25 MG CAP PO PRN (18:34)
[2017-07-14] MEDS: HALOPERIDOL LACTATE 5 MG/ML 1 ML VIAL IM PRN (20:20)
--- NOTE | 2017-07-15 08:21 | P.PN ---
Progress Note - Text Progress Note Date: 07/15/17 Patient was seen for a follow-up visit. She is lying down in her bed. Initially she just nodded or shook her head to answer the questions. Later on she talked only a few words. She said she did not talk with the web content & social media manager about her discharge plans. She was encouraged to do so. She is still not taking her medications as prescribed. She is getting IM Haldol in the evening instead of by mouth which she is refusing. She does not appear to have any adverse effects from Haldol. Her blood pressure is still high and it is not clear if she is still wearing her clonidine patch. She usually stays in bed, does not socialize or interact with others. She does not attend groups. She was encouraged to get out of the room, attend the groups and socializes with others etc. Plan: Continue Haldol, groups and she is encouraged to attend groups and interact with others etc.
[2017-07-15] MEDS: SYMBICORT 160-4.5 MCG INHALER INHALATION SCH (08:37)
[2017-07-15] MEDS: ALBUTEROL INHALER 60 PUFF/8 GM INHALER INHALATION SCH (08:37)
[2017-07-15] MEDS: DIVALPROEX ER 500 MG TAB.ER.24H PO SCH (09:22)
[2017-07-15] MEDS: HALOPERIDOL 5 MG TAB PO SCH (09:22)
[2017-07-15] MEDS: CALCIUM CARB-VIT D 500MG-200UN 1 EACH TAB PO SCH (11:41)
[2017-07-15] MEDS: HALOPERIDOL LACTATE 5 MG/ML 1 ML VIAL IM PRN (20:58)
[2017-07-16] MEDS: TIOTROPIUM 18 MCG/PUFF INHALER INHALATION SCH ×2 (03:33→11:34)
[2017-07-16] MEDS: ALBUTEROL INHALER 60 PUFF/8 GM INHALER INHALATION SCH ×2 (03:33→11:34)
[2017-07-16] MEDS: SYMBICORT 160-4.5 MCG INHALER INHALATION SCH ×2 (03:36→11:34)
[2017-07-16] MEDS: HALOPERIDOL 5 MG TAB PO SCH ×3 (03:36→21:14)
[2017-07-16] MEDS: DIVALPROEX ER 500 MG TAB.ER.24H PO SCH (08:40)
--- NOTE | 2017-07-16 08:48 | P.PN ---
Progress Note - Text Progress Note Date: 07/16/17 Patient was seen for a follow-up examination in her room. She continues to stay in her room, does not attend groups or go to the dining room. She is not taking her oral medications either. She refused to speak except saying one or 2 words here and there. She does not have any complaint and nodded her head stating that she is doing okay. She has not been violent or combative. She does not attend to her basic needs without encouragement. She continues to feel that we are poisoning her, trying to kill her etc. But she eats most of her meals most of the time. She lives down in the bed covered with a sheet or blanket. Her hair is not combed and she looks unkempt. Plan: Continue Haldol by mouth, encouraged her to attend groups take medications regularly etc.
[2017-07-16] MEDS: CALCIUM CARB-VIT D 500MG-200UN 1 EACH TAB PO SCH (11:47)
[2017-07-16] MEDS: HALOPERIDOL LACTATE 5 MG/ML 1 ML VIAL IM PRN (21:15)
[2017-07-17] MEDS: hydrOXYzine PAMOATE 25 MG CAP PO PRN (01:17)
[2017-07-17] MEDS: SYMBICORT 160-4.5 MCG INHALER INHALATION SCH ×2 (08:34→19:38)
[2017-07-17] MEDS: ALBUTEROL INHALER 60 PUFF/8 GM INHALER INHALATION SCH ×3 (08:34→19:38)
[2017-07-17] MEDS ORDERED: cloNIDine 0.2 MG/24HR PATCH 1 PATCH PATCH TRANSDERM SCH (09:00)
[2017-07-17] MEDS: HALOPERIDOL 5 MG TAB PO SCH ×2 (09:20→20:36)
[2017-07-17] MEDS: DIVALPROEX ER 500 MG TAB.ER.24H PO SCH (09:20)
--- NOTE | 2017-07-17 09:45 | P.PN ---
Progress Note - Text Progress Note Date: 07/17/17 Patient was seen for routine follow-up examination in her room. She walked to the dining room this morning. Otherwise she usually stays in her room. She does not attend groups does not socialize etc. She still does not take any of her oral medication. She is on clonidine patch and her blood pressure seems to be okay today. She continues to report that everyone is poisoning her through food medicine etc. However she eats her meals. She does not show any psychomotor agitation or retardation. She denies hallucinations, suicidal and homicidal ideas. She is oriented to place person etc. She does not have any adverse effects from medications. Plan: Continue Haldol, encourage her to attend groups, it meals and to take her medications.
[2017-07-17] MEDS: TIOTROPIUM 18 MCG/PUFF INHALER INHALATION SCH (12:23)
[2017-07-17] MEDS: CALCIUM CARB-VIT D 500MG-200UN 1 EACH TAB PO SCH (12:40)
[2017-07-17] MEDS: HALOPERIDOL LACTATE 5 MG/ML 1 ML VIAL IM PRN (20:38)
[2017-07-18] MEDS: SYMBICORT 160-4.5 MCG INHALER INHALATION SCH ×2 (08:06→19:41)
[2017-07-18] MEDS: ALBUTEROL INHALER 60 PUFF/8 GM INHALER INHALATION SCH ×3 (08:06→19:41)
[2017-07-18] MEDS: HALOPERIDOL 5 MG TAB PO SCH ×2 (09:30→22:09)
[2017-07-18] MEDS: DIVALPROEX ER 500 MG TAB.ER.24H PO SCH (09:30)
[2017-07-18] MEDS: TIOTROPIUM 18 MCG/PUFF INHALER INHALATION SCH (11:28)
[2017-07-18] MEDS: CALCIUM CARB-VIT D 500MG-200UN 1 EACH TAB PO SCH (12:02)
--- NOTE | 2017-07-18 19:26 | P.PN ---
Progress Note - Text Progress Note Date: 07/18/17 Patient was seen today she reports being compliant with medications however she does not know the names of the medications and the reason why she takes the medications. Reports medications help her to sleep better and that is what she wanted. She reports staying inside her room most of the time she does not go to groups because of the patient's does not want her to attend groups. She reports going to the dayroom only during suppertime. She reports good sleep and appetite. 67-year-old female, dressed in a hospital attire. She appears in fair grooming and hygiene. He maintains good eye contact. Abnormal movements noted. Her speech and thought processes are slow and limited. Her mood is reported as good and affect constricted. She denies current auditory or visual hallucinations. She is delusional about other people not liking her and not wanting her to attend groups. She is alert and oriented to person and place. She denies current suicidal or homicidal ideations. Her insight and judgment are limited. Continue her current medications. Monitor for safety.
[2017-07-18] MEDS: HALOPERIDOL LACTATE 5 MG/ML 1 ML VIAL IM PRN (20:27)
[2017-07-19] MEDS: ALBUTEROL INHALER 60 PUFF/8 GM INHALER INHALATION SCH ×3 (08:16→18:25)
[2017-07-19] MEDS: SYMBICORT 160-4.5 MCG INHALER INHALATION SCH ×2 (08:17→18:25)
[2017-07-19] MEDS: DIVALPROEX ER 500 MG TAB.ER.24H PO SCH (09:59)
[2017-07-19] MEDS: HALOPERIDOL 5 MG TAB PO SCH ×2 (09:59→20:39)
[2017-07-19] MEDS: TIOTROPIUM 18 MCG/PUFF INHALER INHALATION SCH (11:30)
[2017-07-19] MEDS: CALCIUM CARB-VIT D 500MG-200UN 1 EACH TAB PO SCH (12:18)
--- NOTE | 2017-07-19 17:19 | P.PN ---
Progress Note - Text Progress Note Date: 07/19/17 Patient was seen today. She reports good sleep and appetite. she reports being compliant with medications She is isolative and stays inside her room most of the time. Denies current symptoms of depression. 67-year-old female, dressed in a hospital attire. She appears in fair grooming and hygiene. He maintains good eye contact. No Abnormal movements noted. Her speech and thought processes are slow and limited. Her mood is reported as good and affect constricted. She denies current auditory or visual hallucinations. She is paranoid , guarded and delusional about going to [place]. She is alert and oriented to person and place. She denies current suicidal or homicidal ideations. Her insight and judgment are limited. Continue her current medications. Monitor for safety.
[2017-07-19] MEDS: HALOPERIDOL LACTATE 5 MG/ML 1 ML VIAL IM PRN (20:23)
[2017-07-20] MEDS ORDERED: LORazepam 2 MG/ML INJ IM STA (03:06)
[2017-07-20] MEDS ORDERED: HALOPERIDOL LACTATE 5 MG/ML 1 ML VIAL IM ONE (03:06)
[2017-07-20] MEDS: HALOPERIDOL 5 MG TAB PO SCH ×2 (10:04→21:43)
[2017-07-20] MEDS: DIVALPROEX ER 500 MG TAB.ER.24H PO SCH (10:04)
[2017-07-20] MEDS: ALBUTEROL INHALER 60 PUFF/8 GM INHALER INHALATION SCH ×3 (10:10→22:08)
[2017-07-20] MEDS: SYMBICORT 160-4.5 MCG INHALER INHALATION SCH ×2 (10:10→22:08)
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
[2017-07-20] MEDS: CALCIUM CARB-VIT D 500MG-200UN 1 EACH TAB PO SCH (13:12)
[2017-07-20] MEDS: TIOTROPIUM 18 MCG/PUFF INHALER INHALATION SCH (13:20)
[2017-07-20] MEDS: cloNIDine 0.2 MG/24HR PATCH 1 PATCH PATCH TRANSDERM SCH (13:34)
[2017-07-20] MEDS: HALOPERIDOL LACTATE 5 MG/ML 1 ML VIAL IM PRN (21:43)
[2017-07-21 06:47] VITALS: BP 118/73; PULSE 63; RESP 14; TEMP 98.2
[2017-07-21] MEDS: DIVALPROEX ER 500 MG TAB.ER.24H PO SCH (08:26)
[2017-07-21] MEDS: HALOPERIDOL 5 MG TAB PO SCH (08:26)
[2017-07-21] MEDS: SYMBICORT 160-4.5 MCG INHALER INHALATION SCH (08:53)
[2017-07-21] MEDS: ALBUTEROL INHALER 60 PUFF/8 GM INHALER INHALATION SCH ×2 (08:53→12:17)
--- NOTE | 2017-07-21 11:35 | P.DS ---
Providers Date of admission: 06/16/17 15:53 Expected date of discharge: 07/21/17 Attending physician: Dary Torres Consults: 06/16/17 16:40 Consult Physician Routine Consulting Provider: [facility] Consult Reason/Comments: H&P, with medical followup Do you want consulting provider notified?: Yes Primary care physician: Stated None Hospital Course: Patient had her psychiatric evaluation, physical examination and psychosocial evaluation. After psychiatric evaluation her Abilify was changed to Seroquel since she had some hand tremors. Her Depakote was continued. Since she refused to sign her consent for medications and refused to sign voluntary application commitment was initiated. She took her oral medications for a few days and then she refused to take all medications including psychiatric and for general medical problems. She refused to use oxygen also. She refused to go to the dining room to eat and her food was brought to her room. She refused to attend groups and other activities. She refused to go to the court hearing and she was started on Haldol by mouth or IM after the court committed her. She refused to take by mouth Haldol most of the time and she received IM Haldol. After about 4 days of using Haldol she was started on Haldol D IM since she did not have any adverse effects from Haldol. She gradually started to get out of room, go to the dining room and go to the senior front end developer to meet her needs. She continues to refuse oral medications for all problems including use of oxygen. In spite of all these things she did not have any adverse physical problems. However her blood pressure was getting high without antihypertensive medications. So she was started on clonidine patch 0.1 mg. Her blood pressure was still high and the dose was increased to 0.2 mg. With this adjustment her blood pressure came down to normal. She also started to talk a little bit staff. In spite of of refusing to take Depakote she did not have any seizure activity. Since she has not been a behavioral problem and is on monthly injection and clonidine patch for hypertension it was agreed to discharge her back to detention. Condition at the time of discharge: This is a white ambulatory female with fair hygiene. She does not show any psychomotor agitation or retardation. Her speech is fairly spontaneous, very short and goal-directed when she speaks. Otherwise she nods her head or shakes her head for questions. She does not show any objective signs of psychosis. She denies suicidal and homicidal ideas. She is oriented to place and person. Her insight is poor and judgment is still impaired as evidenced by her refusal to take medication. Diagnosis on discharge: Schizophrenia F 20.9. ALLERGY to baclofen, Thorazine, codeine, hydromorphone, Dilantin and tetracycline. Even though her chart is planned for ALLERGY to aspirin she is taking it without any adverse effect. COPD. Patient is discharged to the detention where she will be supervised regarding her medications and ADLs. longterm has agreed to take her to [facility] for her monthly/every 28 days Haldol injection. Patient Condition at Discharge: Stable Plan - Discharge Summary New Discharge Prescriptions: New Albuterol Inhaler [Ventolin Hfa Inhaler] 2 puff INHALATION RT-TID PRN 30 Days #3 puff PRN Reason: Wheezing cloNIDine 0.2 MG/24HR PATCH [Catapres-TTS] 1 patch TRANSDERM Q7D 30 Days #5 patch Haloperidol Decanoate [Haldol D] 100 mg IM Q28H 28 Days #1 vial Continue Aspirin EC [Ecotrin Low Dose] 81 mg PO DAILY 30 Days #30 tablet.dr Discontinued ARIPiprazole [Abilify] 15 mg PO DAILY Divalproex ER [Depakote ER] 500 mg PO BID@1200,2100 Albuterol Inhaler [Ventolin Hfa Inhaler] 2 puff INHALATION RT-HS Albuterol Nebulized [Ventolin Nebulized] 2.5 mg INHALATION RT-TID Budesonide/Formoterol Fumarate [Symbicort 160-4.5 Mcg Inhaler] 2 puff INHALATION RT-BID Calcium Carbonate/Vitamin D3 [Calcium 600-Vit D3 200 Tablet] 1 tab PO DAILY FLUoxetine HCL [PROzac] 20 mg PO W/SUPPER Lisinopril-Hctz 10-12.5 mg [Zestoretic 10-12.5] 1 tab PO DAILY Tiotropium 18 Mcg/Puff [Spiriva] 1 cap INHALATION RT-DAILY@1200 Cefpodoxime Proxetil [Vantin] 200 mg PO Q12HR Discharge Medication List Albuterol Inhaler [Ventolin Hfa Inhaler] 2 puff INHALATION RT-TID PRN 30 Days # 3 puff 07/21/17 [Rx] Aspirin EC [Ecotrin Low Dose] 81 mg PO DAILY 30 Days #30 tablet. 07/21/17 [Rx] Haloperidol Decanoate [Haldol D] 100 mg IM Q28H 28 Days #1 vial 07/21/17 [Rx] cloNIDine 0.2 MG/24HR PATCH [Catapres-TTS] 1 patch TRANSDERM Q7D 30 Days #5 patch 07/21/17 [Rx] Follow up Appointment(s)/Referral(s): None,Stated [Primary Care Provider] - 1-2 days
[2017-07-21] MEDS: TIOTROPIUM 18 MCG/PUFF INHALER INHALATION SCH (12:16)
[2017-07-21] MEDS: CALCIUM CARB-VIT D 500MG-200UN 1 EACH TAB PO SCH (13:06)
[2017-08-06] MEDS ORDERED: HALOPERIDOL DECANOATE 100 MG/ML 1 ML VIAL IM SCH (14:00)
== END 2017-07-21 13:20 | disposition home or self-care (01) | DRG 885 ==
LOC: EC 09:51 → 3MHU 15:53
PROVIDERS: ADMIT Psychiatry & Neurology Psychiatry; ATTEND Psychiatry & Neurology Psychiatry
DX: F20.0 Paranoid schizophrenia (principal); E11.22 Type 2 diabetes mellitus with diabetic chronic kidney disease; Z99.81 Dependence on supplemental oxygen; N39.0 Urinary tract infection, site not specified; J44.9 Chronic obstructive pulmonary disease, unspecified; E86.0 Dehydration; F17.200 Nicotine dependence, unspecified, uncomplicated; F41.0 Panic disorder [episodic paroxysmal anxiety]; F43.10 Post-traumatic stress disorder, unspecified; G40.909 Epilepsy, unspecified, not intractable, without status epilepticus; I12.9 Hypertensive chronic kidney disease with stage 1 through stage 4 chronic kidney disease, or unspecified chronic kidney disease; K21.9 Gastro-esophageal reflux disease without esophagitis; K58.9 Irritable bowel syndrome, unspecified; N18.3 Chronic kidney disease, stage 3 (moderate); Z53.20 Procedure and treatment not carried out because of patient's decision for unspecified reasons; Z79.51 Long term (current) use of inhaled steroids; Z79.82 Long term (current) use of aspirin; Z79.899 Other long term (current) drug therapy; Z87.440 Personal history of urinary (tract) infections; Z88.6 Allergy status to analgesic agent; Z88.1 Allergy status to other antibiotic agents; Z88.5 Allergy status to narcotic agent; Z88.8 Allergy status to other drugs, medicaments and biological substances; Y63.6 Underdosing and nonadministration of necessary drug, medicament or biological substance; M19.90 Unspecified osteoarthritis, unspecified site; Z87.01 Personal history of pneumonia (recurrent); Z87.820 Personal history of traumatic brain injury; Z86.14 Personal history of Methicillin resistant Staphylococcus aureus infection; Z16.22 Resistance to vancomycin related antibiotics; Z87.81 Personal history of (healed) traumatic fracture
CPT/HCPCS: 71045; 80053; 80306; 81003; 83036; 84443; 85025; 94640; 94760

== ENCOUNTER 2017-07-24 09:22 | Emergency (ER) | payer MEDICARE, OTHER ==
[2017-07-24 09:35] VITALS: RESP 20; TEMP 97.5
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
[2017-07-24 09:57] LABS: Basophils # (A) 0.1 k/uL (0-0.2); Basophils % (A) 0 %; Eosinophils # (A) 0.2 k/uL (0-0.7); Eosinophils % (A) 1 %; HCT 42.8 % (34.0-46.0); HGB 15.6 gm/dL (11.4-16.0); Lymphocytes # (A) 2.2 k/uL (1.0-4.8); Lymphocytes % (A) 14 %; MCH 32.1 pg (25.0-35.0); MCHC 36.4 g/dL (31.0-37.0); MCV 88.2 fL (80.0-100.0); Mean Platelet Volume 7.3; Monocytes # (A) 0.8 k/uL (0-1.0); Monocytes % (A) 5 %; Neutrophils # (A) 11.6 k/uL (1.3-7.7); Neutrophils % (A) 77 %; Platelet Count 322 k/uL (150-450); RBC 4.85 m/uL (3.80-5.40); RDW 12.5 % (11.5-15.5)
[2017-07-24 10:07] LABS: Calcium 9.9 mg/dL (8.4-10.2); Potassium 3.9 mmol/L (3.5-5.1)
[2017-07-24 12:46] LABS: Amorphous Sediment,Urine Few /hpf; Appearance,Urine Clear (Clear); Bacteria,Urine Rare /hpf; Bilirubin,Urine Negative (Negative); Blood,Urine Trace (Negative); Color,Urine Light Yellow; Glucose,Urine (UA) Negative (Negative); Ketones,Urine Trace (Negative); Leukocyte Esterase,Urine Negative (Negative); Mucus,Urine Rare /hpf; Nitrite,Urine Negative (Negative); PH, Urine 6.5 (5.0-8.0); Protein,Urine 2+ (Negative); RBC,Urine 2 /hpf (0-5); Specific Gravity,Urine 1.011 (1.001-1.035); Squamous Epithelial Cell,Urine <1 /hpf (0-4); Urobilinogen,Urine <2.0 mg/dL (<2.0); WBC,Urine 1 /hpf (0-5)
[2017-07-24 12:54] LABS: Amphetamine Screen,Urine Not Detected (NotDetected); Barbiturate Screen,Urine Not Detected (NotDetected); Benzodiazepines Screen,Urine Not Detected (NotDetected); Cocaine Screen,Urine Not Detected (NotDetected); Methadone Screen, Urine Not Detected (NotDetected); Opiate Screen,Urine Not Detected (NotDetected); Oxycodone Screen, Urine Not Detected (NotDetected); Phencyclidine Screen,Urine Not Detected (NotDetected); Tricyclic Antidepressant,Urine Not Detected (NotDetected); Urn Cannabinoid Scrn Not Detected (NotDetected)
--- NOTE | 2017-07-24 12:57 | XR ---
EXAMINATION TYPE: XR cervical spine limited DATE OF EXAM: 07/24/2017 CLINICAL HISTORY: pain TECHNIQUE: 3 views of the cervical spine are submitted. COMPARISON: None. FINDINGS: There is satisfactory in alignment without evidence of acute fracture or dislocation. The pre-vertebral soft tissue appears within normal limits.Degenerative changes cervical spine. The C1-C2 articulation is unremarkable on the open mouth view. IMPRESSION: No acute fracture or dislocation is seen in the cervical spine.
--- NOTE | 2017-07-24 13:16 | XR ---
EXAMINATION TYPE: XR chest 2V DATE OF EXAM: 07/24/2017 COMPARISON: 07/06/2017 HISTORY: Shortness of breath TECHNIQUE: Frontal and lateral views of the chest are obtained. FINDINGS: Scattered senescent parenchymal changes noted. No evidence for infiltrate. No evidence for atelectasis. Heart size is stable. Mediastinal structures are stable and grossly unremarkable. No evidence for hilar prominence. Degenerative changes dorsal spine. IMPRESSION: 1. No evidence for acute pulmonary disease.
[2017-07-24] MEDS ORDERED: cloNIDine 0.2 MG/24HR PATCH 1 PATCH PATCH TRANSDERM SCH (13:45)
[2017-07-24 14:18] VITALS: BP 202/89; PULSE 89
== END 2017-07-24 14:18 | disposition home or self-care (01) ==
LOC: EC 09:22
DX: F20.9 Schizophrenia, unspecified (principal); F60.9 Personality disorder, unspecified; M54.2 Cervicalgia; F17.200 Nicotine dependence, unspecified, uncomplicated; Z86.14 Personal history of Methicillin resistant Staphylococcus aureus infection; Z88.5 Allergy status to narcotic agent; Z88.6 Allergy status to analgesic agent; Z88.8 Allergy status to other drugs, medicaments and biological substances
CPT/HCPCS: 36415; 71046; 72040; 80048; 80306; 81001; 82075; 85025; 99284

== ENCOUNTER 2017-10-05 12:06 | Emergency (ER) | payer MEDICARE, OTHER ==
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
[2017-10-05 13:26] LABS: Basophils # (A) 0.1 k/uL (0-0.2); Basophils % (A) 1 %; Eosinophils # (A) 0.4 k/uL (0-0.7); Eosinophils % (A) 4 %; HCT 46.2 % (34.0-46.0); HGB 15.8 gm/dL (11.4-16.0); Lymphocytes % (A) 19 %; MCH 31.7 pg (25.0-35.0); MCHC 34.3 g/dL (31.0-37.0); MCV 92.4 fL (80.0-100.0); Mean Platelet Volume 6.7; Monocytes # (A) 0.6 k/uL (0-1.0); Monocytes % (A) 6 %; Neutrophils # (A) 6.8 k/uL (1.3-7.7); Neutrophils % (A) 68 %; Platelet Count 303 k/uL (150-450); RDW 12.9 % (11.5-15.5); WBC 10.1 k/uL (3.8-10.6)
[2017-10-05 13:41] LABS: Alcohol <10 mg/dL; Anion Gap 5 mmol/L; Blood Urea Nitrogen 30 mg/dL (7-17); Calcium 9.7 mg/dL (8.4-10.2); Carbon Dioxide 26 mmol/L (22-30); Chloride 104 mmol/L (98-107); Glucose 87 mg/dL (74-99); Potassium 4.9 mmol/L (3.5-5.1); Sodium 135 mmol/L (137-145)
[2017-10-05 13:46] LABS: Amorphous Sediment,Urine Few /hpf; Appearance,Urine Cloudy (Clear); Bacteria,Urine Moderate /hpf; Bilirubin,Urine Negative (Negative); Blood,Urine Negative (Negative); Color,Urine Yellow; Glucose,Urine (UA) Negative (Negative); Ketones,Urine Negative (Negative); Leukocyte Esterase,Urine Trace (Negative); Mucus,Urine Rare /hpf; Nitrite,Urine Positive (Negative); PH, Urine 6.5 (5.0-8.0); Protein,Urine Trace (Negative); RBC,Urine 24 /hpf (0-5); Specific Gravity,Urine 1.012 (1.001-1.035); Squamous Epithelial Cell,Urine 1 /hpf (0-4); Urobilinogen,Urine <2.0 mg/dL (<2.0); WBC,Urine 2 /hpf (0-5)
[2017-10-05 13:54] LABS: Amphetamine Screen,Urine Not Detected (NotDetected); Barbiturate Screen,Urine Not Detected (NotDetected); Benzodiazepines Screen,Urine Not Detected (NotDetected); Cocaine Screen,Urine Not Detected (NotDetected); Methadone Screen, Urine Not Detected (NotDetected); Opiate Screen,Urine Not Detected (NotDetected); Oxycodone Screen, Urine Not Detected (NotDetected); Phencyclidine Screen,Urine Not Detected (NotDetected); Tricyclic Antidepressant,Urine Not Detected (NotDetected); Urn Cannabinoid Scrn Not Detected (NotDetected)
[2017-10-05 15:04] VITALS: RESP 18
[2017-10-05 18:31] VITALS: BP 147/76; PULSE 77; TEMP 97.7
== END 2017-10-05 18:31 | disposition home or self-care (01) ==
LOC: EC 12:06
DX: F20.9 Schizophrenia, unspecified (principal); F17.200 Nicotine dependence, unspecified, uncomplicated; Z86.14 Personal history of Methicillin resistant Staphylococcus aureus infection; Z98.890 Other specified postprocedural states; Z88.1 Allergy status to other antibiotic agents; Z88.5 Allergy status to narcotic agent; Z88.6 Allergy status to analgesic agent; Z88.8 Allergy status to other drugs, medicaments and biological substances
CPT/HCPCS: 36415; 80048; 80306; 80320; 81001; 85025; 87086; 93005; 99284

== ENCOUNTER → 2017-10-06 | Outpatient (CLI) | payer MEDICARE, OTHER ==
[~2017-10-06] MED LIST: HALOPERIDOL DECANOATE 100 MG/ML 1 ML VIAL IM ONE; HALOPERIDOL DECANOATE 50 MG/ML 1 ML VIAL IM ONE
== END ==
LOC: LABMAIN 14:22
PROVIDERS: ATTEND Family Medicine
DX: Z53.9 Procedure and treatment not carried out, unspecified reason (principal)